=== PATIENT | female | born 1935 | race Caucasian/White ===

== ENCOUNTER 2018-06-25 08:39 | Outpatient (CLI) | payer MEDICARE, MEDICAID, SELFPAY ==
[2018-06-25 11:51] LABS: Hemoglobin A1C 8.7 % (4.5-6.2)
== END 2018-06-25 08:59 ==
LOC: LOS 12:44 → LBO 16:36 → LOS 16:36
DX: E11.9 Type 2 diabetes mellitus without complications (principal)
CPT/HCPCS: 36415; 82043; 82565; 82570; 83036

== ENCOUNTER 2018-09-24 01:12 | Outpatient (CLI) | payer MEDICARE, MEDICAID, SELFPAY ==
[2018-09-24 12:31] LABS: Hemoglobin A1C 8.1 % (4.5-6.2)
[2018-09-24 12:32] LABS: ALT 14 U/L (12-78); AST 15 U/L (15-37); Albumin 3.1 g/dL (3.4-5.0); Alkaline Phosphatase 133 U/L (46-116); Anion Gap 10.4 mmol/L (3-11); BUN 36 mg/dL (7-18); Bilirubin, Total 0.4 mg/dL (0.2-1.0); CO2 24.6 mmol/L (21.0-32.0); CREATININE 2.44 mg/dL (0.55-1.02); Calcium 9.2 mg/dL (8.5-10.1); Chloride 106 mmol/L (98-107); Estimated GFR 19.01 (mL/min/1.73m2); Glucose 123 mg/dL (70-100); Potassium 4.8 mmol/L (3.5-5.1); Sodium 141 mmol/L (136-145); TSH (W/Ref FT4) 4.87 uIU/mL (0.358-3.74); Total Protein 6.3 g/dL (6.4-8.2)
[2018-09-24 12:53] LABS: FREE T4 1.14 ng/dL (0.76-1.46)
== END 2018-09-24 01:32 ==
DX: R53.1 Weakness (principal); E11.9 Type 2 diabetes mellitus without complications; I10 Essential (primary) hypertension; E03.9 Hypothyroidism, unspecified
CPT/HCPCS: 80053; 83036; 84439; 84443

== ENCOUNTER → 2018-11-12 09:52 | Outpatient (BNVA) | payer MEDICARE, MEDICAID, SELFPAY | PROVIDERS: Visit Provider Orthopaedic Surgery | DX: M17.11 Unilateral primary osteoarthritis, right knee (principal) | CPT/HCPCS: 20610; 99211; 99213; J7325 ==

== ENCOUNTER 2019-01-07 07:38 | Outpatient (CLI) | payer MEDICARE, MEDICAID, SELFPAY ==
[2019-01-07 11:55] LABS: ALT 12 U/L (12-78); AST 17 U/L (15-37); Albumin 3.3 g/dL (3.4-5.0); Alkaline Phosphatase 149 U/L (46-116); Anion Gap 8.9 mmol/L (3-11); BUN 49 mg/dL (7-18); Bilirubin, Total 0.4 mg/dL (0.2-1.0); CO2 27.1 mmol/L (21.0-32.0); CREATININE 2.54 mg/dL (0.55-1.02); Calcium 9.4 mg/dL (8.5-10.1); Chloride 106 mmol/L (98-107); Glucose 91 mg/dL (70-100); Potassium 4.8 mmol/L (3.5-5.1); Sodium 142 mmol/L (136-145); TSH (W/Ref FT4) 4.44 uIU/mL (0.358-3.74); Total Protein 6.6 g/dL (6.4-8.2)
[2019-01-07 12:18] LABS: Hemoglobin A1C 9.4 % (4.5-6.2)
[2019-01-07 12:40] LABS: FREE T4 1.17 ng/dL (0.76-1.46)
== END 2019-01-07 07:58 ==
LOC: LBO 08:15 → LOS 09:47
DX: E11.9 Type 2 diabetes mellitus without complications (principal); E03.9 Hypothyroidism, unspecified; I10 Essential (primary) hypertension; I73.9 Peripheral vascular disease, unspecified; N18.9 Chronic kidney disease, unspecified
CPT/HCPCS: 36415; 80053; 83036; 84439; 84443

== ENCOUNTER 2019-02-18 06:33 | Outpatient (CLI) | payer MEDICARE, MEDICAID, SELFPAY ==
[2019-02-18 11:17] LABS: BUN 47 mg/dL (7-18); CREATININE 2.55 mg/dL (0.55-1.02); Estimated GFR 18.02 (mL/min/1.73m2)
== END 2019-02-18 06:53 ==
DX: N18.9 Chronic kidney disease, unspecified (principal)
CPT/HCPCS: 36415; 84520; 82565

== ENCOUNTER 2019-03-31 06:40 | Outpatient (CLI) | payer MEDICARE, MEDICAID, SELFPAY ==
[2019-03-31 11:08] LABS: ALT 21 U/L (12-78); AST 15 U/L (15-37); Albumin 3.3 g/dL (3.4-5.0); Alkaline Phosphatase 143 U/L (46-116); Anion Gap 7.7 mmol/L (3-11); BUN 42 mg/dL (7-18); Bilirubin, Total 0.3 mg/dL (0.2-1.0); CO2 25.3 mmol/L (21.0-32.0); CREATININE 2.69 mg/dL (0.55-1.02); Calcium 9.5 mg/dL (8.5-10.1); Chloride 110 mmol/L (98-107); Estimated GFR 16.94 (mL/min/1.73m2); Glucose 88 mg/dL (70-100); Potassium 5.6 mmol/L (3.5-5.1); Sodium 143 mmol/L (136-145); TSH (W/Ref FT4) 3.56 uIU/mL (0.358-3.74); Total Protein 6.5 g/dL (6.4-8.2)
== END 2019-03-31 07:00 ==
DX: E03.9 Hypothyroidism, unspecified (principal); E11.9 Type 2 diabetes mellitus without complications; I10 Essential (primary) hypertension; N18.9 Chronic kidney disease, unspecified; N28.9 Disorder of kidney and ureter, unspecified; G47.00 Insomnia, unspecified
CPT/HCPCS: 36415; 80053; 83036; 84443

== ENCOUNTER 2019-04-21 08:25 | Outpatient (CLI) | payer MEDICARE, MEDICAID, SELFPAY ==
[2019-04-21 11:26] LABS: Anion Gap 10.6 mmol/L (3-11); BUN 42 mg/dL (7-18); CO2 24.4 mmol/L (21.0-32.0); Calcium 9.2 mg/dL (8.5-10.1); Chloride 109 mmol/L (98-107); Estimated GFR 14.94 (mL/min/1.73m2); Glucose 84 mg/dL (70-100); Potassium 4.9 mmol/L (3.5-5.1); Sodium 144 mmol/L (136-145)
== END 2019-04-21 08:45 ==
LOC: LBO 08:26 → LOS 08:32
DX: N28.9 Disorder of kidney and ureter, unspecified (principal)
CPT/HCPCS: 36415; 80048

== ENCOUNTER 2019-04-23 10:49 | Outpatient (CLI) | payer MEDICARE, MEDICAID, SELFPAY ==
--- NOTE | 2019-04-23 10:08 | DI.RAD_ITS ---
SYMPTOM/DIAGNOSIS: M25.551, RT HIP PAIN, S/P LT HIP REPLACEMENT RIGHT HIP AND PELVIS: Joint space narrowing, articular sclerosis and periarticular hypertrophic spurring are demonstrated. The findings are consistent with severe DJD.
== END 2019-04-23 11:09 ==
PROVIDERS: Visit Provider Family Medicine
DX: M25.551 Pain in right hip (principal); M16.11 Unilateral primary osteoarthritis, right hip; Z96.642 Presence of left artificial hip joint
CPT/HCPCS: 73502

== ENCOUNTER → 2019-05-13 09:47 | Outpatient (BNVA) | payer MEDICARE, MEDICAID, SELFPAY | PROVIDERS: Visit Provider Orthopaedic Surgery | DX: M17.11 Unilateral primary osteoarthritis, right knee (principal); M16.11 Unilateral primary osteoarthritis, right hip; E11.22 Type 2 diabetes mellitus with diabetic chronic kidney disease; I12.9 Hypertensive chronic kidney disease with stage 1 through stage 4 chronic kidney disease, or unspecified chronic kidney disease; N18.9 Chronic kidney disease, unspecified; Z96.652 Presence of left artificial knee joint | CPT/HCPCS: 20610; 99211; 99213; J7325 ==

== ENCOUNTER 2019-05-14 00:47 | Outpatient (CLI) | payer MEDICARE, MEDICAID, SELFPAY ==
--- NOTE | 2019-05-14 06:57 | DI.RAD_ITS ---
SYMPTOM/DIAGNOSIS: RIGHT HIP PAIN RIGHT HIP INJECTION: Fluoroscopy Time: 2.0 Fluoroscopy was utilized by Dr. Saenz during the performance of a right hip injection. Please refer to the procedure report for complete details.
--- NOTE | 2019-05-14 10:24 | ROE_ITS ---
PROCEDURE NOTE DATE OF PROCEDURE May 14, 2019 INDICATIONS FOR PROCEDURE Hallie is well known to me. She has osteoarthritis of the right hip. This was discovered on a recent x-ray ordered by Dr. Cruz. She was seen yesterday in the office for her knee arthritis on the r ight side, and this was treated with Synvisc-One. However, she has complained of increasing right hip pain. She was not interested in a hip replacement operation. In addition, she has significant renal failure issues, which have been somewhat corrected with her diet, which is low in potassium and prote in. I recommended injection of the right hip under fluoroscopy. This was Dr. Cruz's request as livia juarez. I discussed this in detail with the patient and her granddaughter and she understood and wished to proceed. DESCRIPTION OF PROCEDURE The patient was taken to the Fluoroscopy Suite. The anterolateral aspect of her right proximal femur was prepped with ChloraPrep. 1% lidocaine was then used to create an anesthetic wheal with a #25-guag e needle along the proposed injection site of the spinal needle. After waiting an adequate amount of time, a #22-guage spinal needle was inserted into the right hip j oint under fluoroscopic control. I then injected the hip joint with 6 cc of 0.5% Marcaine and 80 mg of Depo- Medrol. The patient noted immediate pain relief. She was able to sit with comfort and could walk with minimal to no pain. She tolerated the procedure well. She showed no adverse effects. A Band-Aid was placed on the puncture site. PLAN She will followup depending on how she responds to the medication. She is advised that she will notic e the pain to recur after the Marcaine wears off, but then should remit after the Depo-Medrol injecti on has had a chance to take effect.
== END 2019-05-14 01:07 ==
PROVIDERS: Visit Provider Orthopaedic Surgery
DX: M16.11 Unilateral primary osteoarthritis, right hip (principal); M25.551 Pain in right hip
CPT/HCPCS: 20610; 77002

== ENCOUNTER 2019-05-27 01:34 | Outpatient (CLI) | payer MEDICARE, MEDICAID, SELFPAY ==
[2019-05-27 11:31] LABS: Anion Gap 11.5 mmol/L (3-11); BUN 61 mg/dL (7-18); CO2 23.5 mmol/L (21.0-32.0); CREATININE 2.99 mg/dL (0.55-1.02); Calcium 9.3 mg/dL (8.5-10.1); Chloride 109 mmol/L (98-107); Glucose 114 mg/dL (70-100); Potassium 5.1 mmol/L (3.5-5.1); Sodium 144 mmol/L (136-145)
== END 2019-05-27 01:54 ==
DX: N18.9 Chronic kidney disease, unspecified (principal); E11.22 Type 2 diabetes mellitus with diabetic chronic kidney disease
CPT/HCPCS: 36415; 80048

== ENCOUNTER 2019-06-25 01:51 | Outpatient (CLI) | payer MEDICARE, MEDICAID, SELFPAY ==
[2019-06-25 12:48] LABS: Anion Gap 7.8 mmol/L (3-11); BUN 52 mg/dL (7-18); CO2 25.2 mmol/L (21.0-32.0); CREATININE 2.66 mg/dL (0.55-1.02); Chloride 109 mmol/L (98-107); Estimated GFR 17.16 (mL/min/1.73m2); Glucose 118 mg/dL (70-100); Potassium 4.6 mmol/L (3.5-5.1); Sodium 142 mmol/L (136-145)
[2019-06-25 12:58] LABS: Hemoglobin A1C 7.6 % (4.5-6.2)
== END 2019-06-25 02:11 ==
DX: E11.9 Type 2 diabetes mellitus without complications (principal); I10 Essential (primary) hypertension; N18.9 Chronic kidney disease, unspecified
CPT/HCPCS: 36415; 80048; 83036

== ENCOUNTER 2019-07-30 01:46 | Outpatient (CLI) | payer MEDICARE, MEDICAID, SELFPAY ==
[2019-07-30 12:35] LABS: Hemoglobin A1C 7.3 % (4.5-6.2)
[2019-07-30 12:40] LABS: ALT 12 U/L (14-59); AST 16 U/L (15-37); Albumin 3.4 g/dL (3.4-5.0); Alkaline Phosphatase 157 U/L (46-116); BUN 50 mg/dL (7-18); Bilirubin, Total 0.3 mg/dL (0.2-1.0); CREATININE 2.89 mg/dL (0.55-1.02); Calcium 9.2 mg/dL (8.5-10.1); Chloride 108 mmol/L (98-107); Glucose 148 mg/dL (70-100); Potassium 5.3 mmol/L (3.5-5.1); Sodium 142 mmol/L (136-145); TSH (W/Ref FT4) 3.54 uIU/mL (0.36-3.74); Vitamin B12 263 pg/mL (193-986)
== END 2019-07-30 02:06 ==
DX: E03.9 Hypothyroidism, unspecified (principal); E11.9 Type 2 diabetes mellitus without complications; I10 Essential (primary) hypertension; N28.9 Disorder of kidney and ureter, unspecified; R41.3 Other amnesia; G47.00 Insomnia, unspecified; D51.8 Other vitamin B12 deficiency anemias
CPT/HCPCS: 36415; 80053; 82607; 83036; 84443

== ENCOUNTER 2019-09-11 03:25 | Outpatient (CLI) | payer MEDICARE, MEDICAID, SELFPAY ==
[2019-09-11 10:47] LABS: Anion Gap 10.1 mmol/L (3-11); BUN 59 mg/dL (7-18); CO2 22.9 mmol/L (21.0-32.0); CREATININE 3.06 mg/dL (0.55-1.02); Calcium 9.3 mg/dL (8.5-10.1); Chloride 110 mmol/L (98-107); Glucose 146 mg/dL (74-106); Potassium 5.2 mmol/L (3.5-5.1); Sodium 143 mmol/L (136-145)
== END 2019-09-11 03:45 ==
DX: I10 Essential (primary) hypertension (principal); N28.9 Disorder of kidney and ureter, unspecified
CPT/HCPCS: 36415; 80048

== ENCOUNTER 2019-10-10 01:23 | Outpatient (CLI) | payer MEDICARE, MEDICAID, SELFPAY ==
[2019-10-10 11:36] LABS: Anion Gap 11.3 mmol/L (3-11); BUN 49 mg/dL (7-18); CO2 24.7 mmol/L (21.0-32.0); CREATININE 2.75 mg/dL (0.55-1.02); Calcium 9.5 mg/dL (8.5-10.1); Chloride 112 mmol/L (98-107); Estimated GFR 16.52 (mL/min/1.73m2); Glucose 119 mg/dL (74-106); Potassium 5.1 mmol/L (3.5-5.1); Sodium 148 mmol/L (136-145)
== END 2019-10-10 01:43 ==
DX: I10 Essential (primary) hypertension (principal); N18.9 Chronic kidney disease, unspecified; I73.9 Peripheral vascular disease, unspecified; R41.3 Other amnesia
CPT/HCPCS: 36415; 80048

== ENCOUNTER → 2019-11-10 12:45 | Outpatient (BNVA) | payer MEDICARE, MEDICAID, SELFPAY | PROVIDERS: Visit Provider Student in an Organized Health Care Education/Training Program | DX: M16.11 Unilateral primary osteoarthritis, right hip (principal); M17.11 Unilateral primary osteoarthritis, right knee; E11.9 Type 2 diabetes mellitus without complications; I10 Essential (primary) hypertension; Z79.4 Long term (current) use of insulin | CPT/HCPCS: 20610; 99213; J7325 ==

== ENCOUNTER 2019-11-12 02:13 | Outpatient (CLI) | payer MEDICARE, MEDICAID, SELFPAY ==
[2019-11-12 11:36] LABS: Hemoglobin A1C 7.6 % (3.8-5.6)
[2019-11-12 11:52] LABS: Anion Gap 10.6 mmol/L (3-11); BUN 55 mg/dL (7-18); CO2 25.4 mmol/L (21.0-32.0); CREATININE 2.86 mg/dL (0.55-1.02); Calcium 9.8 mg/dL (8.5-10.1); Chloride 108 mmol/L (98-107); Estimated GFR 15.79 (mL/min/1.73m2); Glucose 158 mg/dL (74-106); Potassium 4.8 mmol/L (3.5-5.1); Sodium 144 mmol/L (136-145)
== END 2019-11-12 02:33 ==
DX: E11.9 Type 2 diabetes mellitus without complications (principal); I10 Essential (primary) hypertension; N18.9 Chronic kidney disease, unspecified
CPT/HCPCS: 36415; 80048; 83036

== ENCOUNTER 2019-12-16 02:31 | Outpatient (CLI) | payer MEDICARE, MEDICAID, SELFPAY ==
[2019-12-16 11:10] LABS: HCT 32.5 % (36.0-46.0); Mean Corp. HGB Concentration 30.8 g/dL (32.0-36.0); Mean Corpuscular Hemoglobin 27.1 pg (27.0-33.0); Mean Corpuscular Volume 88.1 fL (80-95); Mean Platelet Volume 11.6 fL (8.0-11.0); Platelet Count 231 x1000/uL (130-400); RBC 3.69 m/cumm (4.00-5.20); RBC Distribution Width 13.3 % (11.7-14.6); White Blood Cell Count 6.49 k/cumm (4.4-10.8)
[2019-12-16 12:16] LABS: Iron 43 ug/dL (50-170)
[2019-12-16 12:45] LABS: ALT 12 U/L (14-59); AST 12 U/L (15-37); Albumin 3.4 g/dL (3.4-5.0); Alkaline Phosphatase 154 U/L (46-116); Anion Gap 9.8 mmol/L (3-11); BUN 54 mg/dL (7-18); Bilirubin, Total 0.4 mg/dL (0.2-1.0); CO2 23.2 mmol/L (21.0-32.0); CREATININE 2.76 mg/dL (0.55-1.02); Calcium 9.2 mg/dL (8.5-10.1); Chloride 110 mmol/L (98-107); Estimated GFR 16.45 (mL/min/1.73m2); Glucose 120 mg/dL (74-106); Magnesium 1.9 mg/dL (1.8-2.4); Potassium 5.1 mmol/L (3.5-5.1); Sodium 143 mmol/L (136-145); Total Protein 6.6 g/dL (6.4-8.2)
[2019-12-16 13:24] LABS: PHOSPHORUS 3.8 mg/dL (2.6-4.7)
== END 2019-12-16 02:51 ==
DX: E03.9 Hypothyroidism, unspecified (principal); D50.9 Iron deficiency anemia, unspecified; E11.9 Type 2 diabetes mellitus without complications; I10 Essential (primary) hypertension; I73.9 Peripheral vascular disease, unspecified; N18.9 Chronic kidney disease, unspecified; N28.9 Disorder of kidney and ureter, unspecified; R41.3 Other amnesia
CPT/HCPCS: 36415; 80053; 85027; 83540; 83735; 84100

== ENCOUNTER 2020-02-20 01:57 | Outpatient (CLI) | payer MEDICARE, MEDICAID, SELFPAY ==
[2020-02-20 08:54] LABS: HGB 10.7 g/dL (12.0-15.5); Mean Corp. HGB Concentration 31.5 g/dL (32.0-36.0); Mean Corpuscular Hemoglobin 27.8 pg (27.0-33.0); Mean Corpuscular Volume 88.3 fL (80-95); Mean Platelet Volume 11.9 fL (8.0-11.0); Platelet Count 241 x1000/uL (130-400); RBC 3.85 m/cumm (4.00-5.20); RBC Distribution Width 12.7 % (11.7-14.6); White Blood Cell Count 6.66 k/cumm (4.4-10.8)
[2020-02-20 09:12] LABS: Hemoglobin A1C 7.4 % (3.8-5.6)
[2020-02-20 09:48] LABS: Iron 38 ug/dL (50-170); Total Iron Binding Capacity 211 ug/dL (250-450); Transferrin Sat 18 % (15-50)
[2020-02-20 09:51] LABS: Anion Gap 9.1 mmol/L (3-11); BUN 46 mg/dL (7-18); CO2 26.9 mmol/L (21.0-32.0); CREATININE 2.87 mg/dL (0.55-1.02); Calcium 9.5 mg/dL (8.5-10.1); Chloride 105 mmol/L (98-107); Estimated GFR 15.68 (mL/min/1.73m2); Glucose 116 mg/dL (74-106); Potassium 4.6 mmol/L (3.5-5.1); Sodium 141 mmol/L (136-145); TSH (W/Ref FT4) 3.72 uIU/mL (0.36-3.74)
== END 2020-02-20 02:17 ==
DX: D50.9 Iron deficiency anemia, unspecified (principal); E11.9 Type 2 diabetes mellitus without complications; E03.9 Hypothyroidism, unspecified; I10 Essential (primary) hypertension; N18.9 Chronic kidney disease, unspecified; R41.3 Other amnesia
CPT/HCPCS: 36415; 80048; 85027; 83036; 83540; 83550; 84443

== ENCOUNTER 2020-04-13 00:55 | Outpatient (CLI) | payer MEDICARE, MEDICAID, SELFPAY ==
[2020-04-13 14:50] LABS: Anion Gap 12.4 mmol/L (3-11); BUN 39 mg/dL (7-18); CO2 24.6 mmol/L (21.0-32.0); CREATININE 2.92 mg/dL (0.55-1.02); Calcium 9.3 mg/dL (8.5-10.1); Chloride 106 mmol/L (98-107); Estimated GFR 15.38 (mL/min/1.73m2); Glucose 106 mg/dL (74-106); Potassium 5.1 mmol/L (3.5-5.1); Sodium 143 mmol/L (136-145)
[2020-04-13 14:55] LABS: Iron 30 ug/dL (50-170)
== END 2020-04-13 01:15 ==
DX: I10 Essential (primary) hypertension (principal); N28.9 Disorder of kidney and ureter, unspecified; R41.3 Other amnesia; N18.9 Chronic kidney disease, unspecified
CPT/HCPCS: 36415; 80048; 83540

== ENCOUNTER 2020-05-26 03:50 | Outpatient (CLI) | payer MEDICARE, MEDICAID, SELFPAY ==
[2020-05-26 09:13] LABS: Abs Immature Grans 0.02 10^3/uL (0.0-0.06); Absolute Basophil Count 0.01 10^3/uL (0.0-0.2); Absolute Eosinophil Count 0.16 10^3/uL (0.0-0.7); Absolute Lymphocyte Count 1.57 10^3/uL (1.2-3.4); Absolute Monocyte Count 0.61 10^3/uL (0.1-0.8); Absolute Neutrophil Count 5.88 10^3/uL (1.2-6.7); Basophils % 0.1; Eosinophils % 1.9; HCT 34.6 % (36.0-46.0); HGB 10.8 g/dL (11.2-15.7); Immature Grans % 0.2; MCH 27.6 pg (27.0-33.0); MCHC 31.2 % (32.0-36.0); MCV 88.3 fL (80-95); MPV 11.1 fL (8.0-11.0); Monocytes % 7.4; Neutrophils % 71.4; Nucleated RBC 0 %; Platelet Count 217 10^3/uL (130-400); RBC 3.92 10^6/uL (3.93-5.22); RDW 12.9 % (11.7-14.6); RDW-SD 41.1 fL; WBC 8.25 10^3/uL (4.4-10.8)
[2020-05-26 09:17] LABS: Bilirubin Negative (Negative); Blood Trace-intact (Negative); Clarity Clear (Clear); Glucose Negative (Negative); Ketones Negative (Negative); Leukocyte Esterase Small (Negative); Nitrite Negative (Negative); Urobilinogen 0.2 EU/dL (Up TO 0.2); pH 6.5 (5-8)
[2020-05-26 09:23] LABS: Hemoglobin A1C 6.6 % (3.8-5.6)
[2020-05-26 09:27] LABS: Bacteria Many HPF (Negative); C & S Indicated? Yes; RBC 0-2 HPF (0-2); WBC >50 HPF (0-5)
[2020-05-26 10:00] LABS: Iron 41 ug/dL (50-170)
[2020-05-26 10:11] LABS: Anion Gap 10.2 mmol/L (3-11); BUN 46 mg/dL (7-18); CO2 25.8 mmol/L (21.0-32.0); CREATININE 2.58 mg/dL (0.55-1.02); Calcium 9.4 mg/dL (8.5-10.1); Chloride 105 mmol/L (98-107); Estimated GFR 17.74 (mL/min/1.73m2); Glucose 110 mg/dL (74-106); Potassium 4.5 mmol/L (3.5-5.1); Sodium 141 mmol/L (136-145); TSH (W/Ref FT4) 3.97 uIU/mL (0.36-3.74)
[2020-05-26 10:42] LABS: FREE T4 1.21 ng/dL (0.76-1.46)
== END 2020-05-26 04:10 ==
DX: E03.9 Hypothyroidism, unspecified (principal); E11.22 Type 2 diabetes mellitus with diabetic chronic kidney disease; I12.9 Hypertensive chronic kidney disease with stage 1 through stage 4 chronic kidney disease, or unspecified chronic kidney disease; N18.9 Chronic kidney disease, unspecified; R41.3 Other amnesia
CPT/HCPCS: 80048; 87077; 81003; 81015; 83036; 83540; 84439; 84443; 85025; 87086; 87186

== ENCOUNTER 2020-08-27 03:30 | Outpatient (CLI) | payer MEDICARE, MEDICAID, SELFPAY ==
[2020-08-27 09:55] LABS: HCT 33.9 % (36.0-46.0); HGB 10.5 g/dL (11.2-15.7); MCH 27.6 pg (27.0-33.0); MPV 11.4 fL (8.0-11.0); Platelet Count 258 10^3/uL (130-400); RBC 3.81 10^6/uL (3.93-5.22); RDW 12.8 % (11.7-14.6); RDW-SD 41.4 fL; WBC 7.41 10^3/uL (4.4-10.8)
[2020-08-27 09:58] LABS: Bilirubin Negative (Negative); Blood Trace-intact (Negative); Clarity Cloudy (Clear); Glucose Negative (Negative); Ketones Negative (Negative); Leukocyte Esterase Moderate (Negative); Nitrite Negative (Negative); Specific Gravity 1.025 (1.005-1.025); Urobilinogen 0.2 EU/dL (Up TO 0.2)
[2020-08-27 10:05] LABS: Hemoglobin A1C 6.4 % (<5.7)
[2020-08-27 10:11] LABS: Bacteria Packed HPF (Negative); C & S Indicated? Yes; WBC >50 HPF (0-5)
[2020-08-27 10:41] LABS: Anion Gap 10.5 mmol/L (3-11); BUN 38 mg/dL (7-18); CO2 26.5 mmol/L (21.0-32.0); CREATININE 2.66 mg/dL (0.55-1.02); Calcium 8.8 mg/dL (8.5-10.1); Chloride 107 mmol/L (98-107); Estimated GFR 17.12 (mL/min/1.73m2); Glucose 150 mg/dL (74-106); Potassium 4.8 mmol/L (3.5-5.1); Sodium 144 mmol/L (136-145)
[2020-08-27 10:44] LABS: Iron 51 ug/dL (50-170); Total Iron Binding Capacity 192 ug/dL (250-450)
== END 2020-08-27 03:50 ==
DX: D50.9 Iron deficiency anemia, unspecified (principal); I12.9 Hypertensive chronic kidney disease with stage 1 through stage 4 chronic kidney disease, or unspecified chronic kidney disease; N18.9 Chronic kidney disease, unspecified; E11.22 Type 2 diabetes mellitus with diabetic chronic kidney disease; R41.0 Disorientation, unspecified
CPT/HCPCS: 36415; 80048; 85027; 87077; 81003; 81015; 83036; 83540; 83550; 87086; 87186

== ENCOUNTER 2020-09-19 14:26 | Inpatient (IN) | payer MEDICARE, MEDICAID, SELFPAY ==
--- NOTE | 2020-09-19 14:37 | ED.GENADUL_ITS ---
Discharge Plan Discharge Details Chief Complaint: Nausea/Vomit/Diar Admit Date/Time: 09/19/20 16:32 Admit Provider: Freddy Flores Attending Provider: Freddy Flores Primary Care Provider: Smita Boyer ED Provider: Dina Branch Discharge Data Discharge Date/Time-TO BE ENTERED AT DEPARTURE: 09/19/20 17:05 Medical Decision Making <STEPHANIE Ramirez - Last Filed: 09/19/20 20:37> Patient is a pleasant 84-year-old female presents today with chief complaint of diarrhea. Diarrhea is present for the past week. She reports approximately 10 bowel movements today which have been quite liquidy. Per the patient and her daughter, she does not always know when she is having a bowel movement and she has had significant skin breakdown as a result. She denies any fevers or chills. Was recently treated with both Cefpodoxime and ceftriaxone for UTI. She denies any urinary tract symptoms at this time. No back pain. Denies any abdominal pain. Has had a diminished appetite. Past medical history significant for anemia, decubitus ulcer, PVD, hypothyr oidism, hyperlipidemia, hypertension, diabetes, CKD. On exam, patient appears nontoxic. Vital signs are reassuring. Abdominal exam is significant for hyperactive bowel sounds. She does have skin breakdown on her buttock, nursing staff applied Laura cream. Primary concern at this time for C. difficile based on the multiple antibiotics she has been on recently. Will obtain stool sample. We will also evaluate potential dehydration electrolyte abnormalities. Give IV hydration. Labs signficant for acute kidney injury. She has hx of CKD but this is elevated from previously. At the end of my shift, care transitioned to Dina Branch NP. Prior to my departure, I discussed disposition with daughter. She advised that her mother would like to be a DNR/DNI. HOwever, she feels that inpatient admission may be appropriate particularly as she is having difficulty caring for herself at home with her diarrhea. She reports that her mother will often sit in her stool and does not realize that she is incontinent of loose stool. At the end of my shift, stool testing pending. <Dina Branch - Last Filed: 09/19/20 21:49> Care assumed from provider (Diana BROWN) Discussed patient details and case and pending workup and disposition. Patient is hemodynamically stable, and alert and oriented. C. difficile culture came back positive. Due to patient's history of dementia, approximately 10 stools a day, and skin breakdown., Patient may do better as admission into the hospital. Will page hospitalist for possible admission. 1630: Spoke with Dr. Flores who agrees to admit patient for c-difficile diarrhea. Discussed plan with patient and patient's daughter. verbalized understanding. HPI <STEPHANIE Ramirez - Last Filed: 09/19/20 20:37> General Mode of arrival: ambulatory . Date/Time Provider Initiated Documentation: 09/19/20 14:27 . Limitations to Documentation: no limitations . Information obtained by: patient, family (daughter Sue, ) and RN notes reviewed . HPI Narrative: Patient is a pleasant 84-year-old female presenting today with chief complaint of diarrhea. Patient was recently treated for UTI first with ceftriaxone then cefpodoxime. Shortly after that, she began having watery diarrhea. Reports 10 bowel movements today. Is endorsing some buttock discomfort associated skin breakdown. She denies any fevers or chills. Denies any abdominal pain. No recent travel. No month exposures. Denies any chest pain or shortness of breath. No cough. Patient does have dementia although she is quite a good historian despite this. Daughter Sue is also able to augment history and provide good health information Related Data Home Medications Medication Instructions Recorded Confirmed acetaminophen [Acetaminophen Extra 500 mg PO TID PRN tab-cap 01/14/13 09/19/20 Strength] blood-glucose meter #1 ea 01/02/18 09/19/20 naproxen sodium 220 mg tablet 220 mg PO BID PRN 07/01/18 09/19/20 amlodipine 5 mg tablet 2.5 - 5 mg PO DAILY #90 tab 11/22/19 09/19/20 cyanocobalamin (vitamin B-12) 1,000 mcg SUBLINGUAL DAILY #90 tab 11/22/19 09/19/20 1,000 mcg sublingual tablet hydrochlorothiazide 25 mg tablet 25 mg PO DAILY #90 tab 11/22/19 09/19/20 insulin degludec 100 unit/mL (3 See Rx Instructions SC DAILY #45 ml 11/22/19 09/19/20 mL) subcutaneous pen levothyroxine 100 mcg tablet 100 mcg PO DAILY #90 tab 11/22/19 09/19/20 linagliptin 5 mg tablet 5 mg PO QAM #90 tab 11/22/19 09/19/20 pen needle, diabetic 31 gauge x #100 each 11/22/19 09/19/2001/04 blood sugar diagnostic #200 strip 12/16/19 09/19/20 lancets 28 gauge #200 each 12/16/19 09/19/20 donepezil 10 mg tablet 5 mg PO DAILY #90 tab 01/08/20 09/19/20 triamcinolone acetonide 0.5 % 1 applic TP BID #15 gm 01/08/20 09/19/20 topical cream nut.tx.imp.renal fxn,lac-reduc 237 ml PO DAILY #5688 ml 02/17/20 09/19/20 0.08 gram-1.8 kcal/mL oral liquid ferrous sulfate 325 mg (65 mg 650 mg PO Q OTHER DAY #90 tab 05/10/20 09/19/20 iron) tablet atenolol 25 mg tablet 12.5 mg PO DAILY #90 tab 06/25/20 09/19/20 quetiapine 25 mg tablet 25 mg PO BID PRN #60 tab 08/06/20 09/19/20 cefpodoxime 200 mg tablet 200 mg PO DAILY #14 tab 09/01/20 09/19/20 losartan 25 mg tablet 25 mg PO DAILY #90 tab 09/14/20 09/19/20 Previous Rx's Medication Instructions Recorded blood-glucose meter #1 ea 01/02/18 amlodipine 5 mg tablet 2.5 - 5 mg PO DAILY #90 tab 11/22/19 cyanocobalamin (vitamin B-12) 1,000 mcg SUBLINGUAL DAILY #90 tab 11/22/19 1,000 mcg sublingual tablet hydrochlorothiazide 25 mg tablet 25 mg PO DAILY #90 tab 11/22/19 insulin degludec 100 unit/mL (3 See Rx Instructions SC DAILY #45 ml 11/22/19 mL) subcutaneous pen levothyroxine 100 mcg tablet 100 mcg PO DAILY #90 tab 11/22/19 linagliptin 5 mg tablet 5 mg PO QAM #90 tab 11/22/19 pen needle, diabetic 31 gauge x #100 each 11/22/1901/04 blood sugar diagnostic #200 strip 12/16/19 lancets 28 gauge #200 each 12/16/19 donepezil 10 mg tablet 5 mg PO DAILY #90 tab 01/08/20 triamcinolone acetonide 0.5 % 1 applic TP BID #15 gm 01/08/20 topical cream nut.tx.imp.renal fxn,lac-reduc 237 ml PO DAILY #5688 ml 02/17/20 0.08 gram-1.8 kcal/mL oral liquid ferrous sulfate 325 mg (65 mg 650 mg PO Q OTHER DAY #90 tab 05/10/20 iron) tablet atenolol 25 mg tablet 12.5 mg PO DAILY #90 tab 06/25/20 quetiapine 25 mg tablet 25 mg PO BID PRN #60 tab 08/06/20 cefpodoxime 200 mg tablet 200 mg PO DAILY #14 tab 09/01/20 losartan 25 mg tablet 25 mg PO DAILY #90 tab 09/14/20 Allergies Allergy/AdvReac Type Severity Reaction Status Date / Time Sulfa (Sulfonamide AdvReac Mild nausea, Verified 09/19/20 14:55 Antibiotics) hives Review of Systems <STEPHANIE Ramirez - Last Filed: 09/19/20 20:37> Constitutional Constitutional: Reports as per HPI, Denies chills, Denies fatigue, Denies fever(s) and Denies headache(s) ENT Ears, Nose, Mouth, and Throat: Denies headache(s) Cardiovascular Cardiovascular: Reports as per HPI, Denies chest pain and Denies dyspnea Respiratory Respiratory: Reports as per HPI, Denies cough and Denies dyspnea Gastrointestinal Gastrointestinal: Reports as per HPI Musculoskeletal Musculoskeletal: Reports as per HPI and Denies back pain Integumentary/Breasts Skin/Breast: Reports as per HPI and Denies rash Neurologic Neurologic: Reports as per HPI and Denies headache(s) Endocrine Endocrine: Denies fatigue PFSH <STEPHANIE Ramirez - Last Filed: 09/19/20 20:37> Medical History CKD (chronic kidney disease) stage 5, GFR less than 15 ml/min Confusion Degenerative arthritis of right knee (03/25/15) Most recent Synvisc injection: 11/10/19 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 DNI (do not intubate) Essential hypertension (09/03/13) Generalized osteoarthritis right hip moderate right knee severe THR left hands Glaucoma Hyperlipidemia Hypothyroidism (09/04/13) Iron deficiency anemia Memory loss (06/15/14) MRI cerebral atrophy and small vessel vascular disease 08/13/15; [facility] – [place]; MEMORY LOSS IS LIKELY DEMENTIA Peripheral vascular disease (09/20/08) decreased pedal pulses; asymptomatic PAD Seborrheic dermatitis of scalp (10/17/16) Quarter size dry scaly area on right forehead at hairline. Encouraged Triamcinolone Cream 1-2 times per day. Hydrate in between with Cetaphil cream or something similar. Weakness generalized (04/02/18) Weight loss observed on examination 03/31/20 - Down 10lbs past 3 months Surgical History Total replacement of hip (~1993) LEFT Trigger Finger release (11/09/15) 05/15/14; [facility]; LEFT MIDDLE FINGER; LEFT PIP JOINT 11/09/15; Dr. Garcia; left ring finger trigger elease & left carpal tunnel release Family History Mother Neoplasm LIVER Father No problems noted. Sister No problems noted. Brother Diabetes Grandfather No problems noted. Grandfather No problems noted. Grandmother No problems noted. Grandmother No problems noted. Son Diabetes Daughter Diabetes Daughter No problems noted. Daughter Diabetes Social History Smoking/Tobacco Use Status: Never Smoking risk assessment performed?: Yes Alcohol Intake: never Drug use: Never Substance use type: does not use Current gender identity: female What type of physical activity do you participate in: none Special marleny needs: No Do you feel safe at home: Yes Do you feel safe in your relationship?: Yes Exam <STEPHANIE Ramirez - Last Filed: 09/19/20 20:37> Const General: cooperative, healthy appearing, comfortable, no acute distress and well developed Nutritional Appearance: average body habitus and well nourished Orientation: alert and awake HENMT Head: normal to inspection Mouth: moist mucous membranes Resp Effort & Inspection: normal respiratory effort, able to speak in complete sentences and no respiratory distress Auscultation: clear to auscultation bilaterally, no rales, no rhonchi and no wheezes Cardio Rate: regular rate Rhythm: regular rhythm Heart Sounds: S1 normal and S2 normal GI Inspection: normal to inspection, no edema, non-distended, no visible herniation and no visible pulsation Palpation: soft, no hepatosplenomegaly, not firm, no guarding, no hernias, no pulsatile masses, not rigid and nontender Percussion: normal to percussion Auscultation: hyperactive bowel sounds Back/Spine/Pelvis Back: no CVA tenderness Skin General skin exam: no rashes or lesions noted Trauma: no lacerations or abrasions Neuro General: patient alert, patient awake and patient oriented x3 Cognition: normal cognition Speech: speech normal Gait: normal gait Psych Appearance: grossly normal and well kempt Mental Status: mental status grossly normal Speech and Movement: speech and movement normal Sign Out <STEPHANIE Ramirez - Last Filed: 09/19/20 20:37> Sign Out Data: Sign Out Comment: Care transitioned to Dina Branch NP with c.diff testing pending. Last updated by Diana Agarwal PA at 09/19/20 15:46
[2020-09-19 14:45] VITALS: BP 124/59; PULSE 74; RESP 20; TEMP 36.5; O2SAT 100
[2020-09-19] MEDS: Normal Saline 1,000 ML 1000 ML IV (15:15)
[2020-09-19 15:22] LABS: Abs Immature Grans 0.02 10^3/uL (0.0-0.06); Absolute Basophil Count 0.02 10^3/uL (0.0-0.2); Absolute Eosinophil Count 0.07 10^3/uL (0.0-0.7); Absolute Lymphocyte Count 1.12 10^3/uL (1.2-3.4); Absolute Monocyte Count 0.78 10^3/uL (0.1-0.8); Absolute Neutrophil Count 5.51 10^3/uL (1.2-6.7); Basophils % 0.3; Eosinophils % 0.9; HCT 30.8 % (36.0-46.0); HGB 9.8 g/dL (11.2-15.7); Immature Grans % 0.3; Lymphocytes % 14.9; MCH 27.7 pg (27.0-33.0); MCHC 31.8 % (32.0-36.0); MPV 11.2 fL (8.0-11.0); Monocytes % 10.4; Neutrophils % 73.2; Nucleated RBC 0 %; Platelet Count 260 10^3/uL (130-400); RBC 3.54 10^6/uL (3.93-5.22); RDW 12.7 % (11.7-14.6); RDW-SD 40.6 fL; WBC 7.52 10^3/uL (4.4-10.8)
[2020-09-19 15:37] LABS: ALT 9 U/L (14-59); AST 12 U/L (15-37); Albumin 2.9 g/dL (3.4-5.0); Alkaline Phosphatase 97 U/L (46-116); Anion Gap 10.5 mmol/L (3-11); BUN 48 mg/dL (7-18); Bilirubin, Total 0.4 mg/dL (0.2-1.0); CO2 21.5 mmol/L (21.0-32.0); CREATININE 3.41 mg/dL (0.55-1.02); Calcium 8.8 mg/dL (8.5-10.1); Chloride 107 mmol/L (98-107); Estimated GFR 12.85 (mL/min/1.73m2); Glucose 171 mg/dL (74-106); Magnesium 1.8 mg/dL (1.8-2.4); Potassium 3.9 mmol/L (3.5-5.1); Sodium 139 mmol/L (136-145); Total Protein 6.8 g/dL (6.4-8.2)
[2020-09-19 15:39] LABS: Troponin I < 0.05 ng/mL (<0.06)
[2020-09-19 15:52] LABS: C Diff PCR Positive (Negative)
[2020-09-19 17:03] VITALS: BP 132/76; PULSE 72; RESP 18; TEMP 36.4; O2SAT 99
[2020-09-19 17:20] VITALS: BP 147/73; PULSE 88; RESP 16; TEMP 37; O2SAT 97
--- NOTE | 2020-09-19 17:57 | HPE_ITS ---
Date of service: 09/19/20 Time of Service: 17:58 Assessment and Plan Assessment and plan (1) Clostridium difficile colitis: Start date: 09/19/20 Status: Acute Assessment and plan: This is an 84-year-old lady recently treated for UTI with cephalosporin orally and presenting with several days of loose, watery stools and skin breakdown along with dehydration with already advanced CKD. She will be admitted for IV hydration and IV Flagyl considering oral vancomycin if her stools are not slowing down. She will be on a clear fluid diet. (2) Diabetes mellitus: Status: Chronic Assessment and plan: Mealtime glucometers with coverage using short acting insulin while in the hospital. Hold her usual treatment. Qualifiers: Chronic kidney disease stage: stage 5, not on chronic dialysis Diabetes mellitus complication detail: with chronic kidney disease Diabetes mellitus complication status: with kidney complications Diabetes mellitus intermediate card tender insulin use: with jail use Diabetes mellitus type: type 2 Qualified Code(s): E11.22 - Type 2 diabetes mellitus with diabetic chronic kidney disease; N18.5 - Chronic kidney disease, stage 5; Z79.4 - exterminator helper termite (current) use of insulin (3) CKD (chronic kidney disease) stage 5, GFR less than 15 ml/min: Status: Chronic Assessment and plan: Slightly exacerbated with dehydration from fluid loss, the patient to be IV hydrated with encouragement of oral fluids with clear fluid diet. (4) Memory loss: Status: Chronic Assessment and plan: Slightly exacerbated with acute illness with patient to continue on her Aricept. This should clear with hydration once patient is le ss stressed. History of Present Illness History of Present Illness Chief Complaint: Diarrhea Narrative: This is an 84-year-old female patient recently treated for UTI presenting with loose stools for the past week with frequent stools as much as 10 times a day and incontin ence with skin breakdown. The stools are liquid. She denies any abdominal pain and has had no nausea or vomiting. She has no urinary symptoms presently. She is slightly confused during conversation. She has no back pain no difficulties with breathing. She denies any edema. She does have a history of PVD with diabetes on insulin, CKD with anemia, hypertension, hyperlipidemia and decubitus ulcers in the past. She also has hypothyroidism. She denies any fatigue. She was evaluated in the ED and admitted with worsening of her renal function but also frequent stools with skin breakdown required fluid resuscitation and treatment for her C. difficile colitis which was positive by test in the ED. Review of Systems Narrative: 13 point review of systems otherwise unrevealing or unobtainable with the patient confused about recent events. 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 DNI (do not intubate) Essential hypertension (09/03/13) Generalized osteoarthritis right hip moderate right knee severe THR left hands Glaucoma Hyperlipidemia Hypothyroidism (09/04/13) Iron deficiency anemia Memory loss (06/15/14) MRI cerebral atrophy and small vessel vascular disease 08/13/15; [facility] [place]; MEMORY LOSS IS LIKELY DEMENTIA Peripheral vascular disease (09/20/08) decreased pedal pulses; asymptomatic PAD Seborrheic dermatitis of scalp (10/17/16) Quarter size dry scaly area on right forehead at hairline. Encouraged Triamcinolone Cream 1-2 times per day. Hydrate in between with Cetaphil cream or something similar. Weakness generalized (04/02/18) Weight loss observed on examination 03/31/20 - Down 10lbs past 3 months Surgical History Total replacement of hip (~1993) LEFT Trigger Finger release (11/09/15) 05/15/14; [facility]; LEFT MIDDLE FINGER; LEFT PIP JOINT 11/09/15; Dr. Garcia; left ring finger trigger elease & left carpal tunnel release Family History Mother Neoplasm LIVER Father No problems noted. Sister No problems noted. Brother Diabetes Grandfather No problems noted. Grandfather No problems noted. Grandmother No problems noted. Grandmother No problems noted. Son Diabetes Daughter Diabetes Daughter No problems noted. Daughter Diabetes Social History Smoking/Tobacco Use Status: Never Smoking risk assessment performed?: Yes Alcohol Intake: never Drug use: Never Substance use type: does not use Current gender identity: female What type of physical activity do you participate in: none Special marleny needs: No Do you feel safe at home: Yes Do you feel safe in your relationship?: Yes Meds Home Medications and Allergies Home Medications Medication Instructions Recorded Confirmed Type acetaminophen [Acetaminophen Extra 500 mg PO TID PRN tab-cap 01/14/13 09/19/20 History Strength] blood-glucose meter #1 ea 01/02/18 09/19/20 Rx naproxen sodium 220 mg tablet 220 mg PO BID PRN 07/01/18 09/19/20 History amlodipine 5 mg tablet 2.5 - 5 mg PO DAILY #90 tab 11/22/19 09/19/20 Rx cyanocobalamin (vitamin B-12) 1,000 mcg SUBLINGUAL DAILY #90 tab 11/22/19 09/19/20 Rx 1,000 mcg sublingual tablet hydrochlorothiazide 25 mg tablet 25 mg PO DAILY #90 tab 11/22/19 09/19/20 Rx insulin degludec 100 unit/mL (3 See Rx Instructions SC DAILY #45 ml 11/22/19 09/19/20 Rx mL) subcutaneous pen levothyroxine 100 mcg tablet 100 mcg PO DAILY #90 tab 11/22/19 09/19/20 Rx linagliptin 5 mg tablet 5 mg PO QAM #90 tab 11/22/19 09/19/20 Rx pen needle, diabetic 31 gauge x #100 each 11/22/19 09/19/20 Rx 3/16 blood sugar diagnostic #200 strip 12/16/19 09/19/20 Rx lancets 28 gauge #200 each 12/16/19 09/19/20 Rx donepezil 10 mg tablet 5 mg PO DAILY #90 tab 01/08/20 09/19/20 Rx triamcinolone acetonide 0.5 % 1 applic TP BID #15 gm 01/08/20 09/19/20 Rx topical cream nut.tx.imp.renal fxn,lac-reduc 237 ml PO DAILY #5688 ml 02/17/20 09/19/20 Rx 0.08 gram-1.8 kcal/mL oral liquid ferrous sulfate 325 mg (65 mg 650 mg PO Q OTHER DAY #90 tab 05/10/20 09/19/20 Rx iron) tablet atenolol 25 mg tablet 12.5 mg PO DAILY #90 tab 06/25/20 09/19/20 Rx quetiapine 25 mg tablet 25 mg PO BID PRN #60 tab 08/06/20 09/19/20 Rx cefpodoxime 200 mg tablet 200 mg PO DAILY #14 tab 09/01/20 09/19/20 Rx losartan 25 mg tablet 25 mg PO DAILY #90 tab 09/14/20 09/19/20 Rx Allergies Allergy/AdvReac Type Severity Reaction Status Date / Time Sulfa (Sulfonamide AdvReac Mild nausea, Verified 09/19/20 14:55 Antibiotics) hives Exam Narrative Exam Narrative: General: Patient appears appropriate for age, slightly confused and oriented to person and possibly place but not time or purpose. She is in no acute distress. She is asking to go home. HEENT: Normocephalic, eyes with pupils equal and reactive light symmetrically, extraocular movement intact and sclera anicteric. Oropharynx with moist mucosa. External ears and nose normal. Neck: Supple without JVD. Back: Without CVA tenderness. Breast: Exam deferred. Heart: Regular rate and rhythm with intermittent systolic murmur lower left sternal border. No gallops or rubs. Abdomen: Soft, nontender to palpation with bowel sounds hyperactive in all quadrants, no palpable hepatosplenomegaly and pulsatile left abdomen with patient takes deep inspiration without focal mass. Genitalia/rectal: Exam deferred. Extremities: Without clubbing, cyanosis or edema. Peripheral pulses are decreased but capillary refill is fair. Extremities do have arthritic changes with some periarticular muscle atrophy. Skin: Pale, warm and dry there is some superficial skin breakdown over the genitalia and perineal area according to the nurses. Neuro: Cranial nerves II through XII gross intact, no focalizing motor deficits. Psych: Normal affect almost euphoric, no depressed mood or abnormal thought processes, recent memory deficits with remote memory also difficult to assess with patient confusion. Results Imaging Additional studies: TSH low at 0.28 but free T4 normal at 1.75 Labs Result diagrams: 09/19/20 15:15 09/19/20 15:15 Labs: Laboratory Results - last 24 hr 09/19/20 09/19/20 09/19/20 14:45 15:15 15:15 WBC 7.52 RBC 3.54 L Hgb 9.8 L Hct 30.8 L MCV 87.0 MCH 27.7 MCHC 31.8 L RDW 12.7 Plt Count 260 MPV 11.2 H Immature Gran % 0.3 Neutrophils % 73.2 Lymphocytes % 14.9 Monocytes % 10.4 Eosinophils % 0.9 Basophils % 0.3 Nucleated RBC % 0 Absolute Neutrophils 5.51 Absolute Lymphocytes 1.12 L Absolute Monocytes 0.78 Absolute Eosinophils 0.07 Absolute Basophils 0.02 Sodium 139 Potassium 3.9 Chloride 107 Carbon Dioxide 21.5 Anion Gap 10.5 BUN 48 H Creatinine 3.41 H Estimated GFR/1.73 m2 12.85 Glucose 171 H Calcium 8.8 Magnesium 1.8 Total Bilirubin 0.4 AST 12 L ALT 9 L Alkaline Phosphatase 97 Troponin I < 0.05 Total Protein 6.8 Albumin 2.9 L Stl C.difficile Tox PCR Positive A Last Vital Signs Temp 37.0 C 09/19/20 17:20 Pulse 88 09/19/20 17:20 Resp 16 09/19/20 17:20 BP 147/73 H 09/19/20 17:20 Pulse Ox 97 09/19/20 17:20 COVID-19 Screening Have you, or household traveled for leisure in last 14 days?: No Had IN PERSON contact w/suspected or confirmed C-19 person: No
[2020-09-19 18:31] LABS: TSH (W/Ref FT4) 0.28 uIU/mL (0.36-3.74)
[2020-09-19] MEDS: Heparin 5,000 UNITS/ML VIAL 5000 UNITS SC (18:38)
[2020-09-19] MEDS: metroNIDAZOLE 500 MG/100 ML BAG 100 MG IVPB ×2 (18:39→23:35)
[2020-09-19] MEDS: Ferrous Sulfate 325 MG TAB 650 MG PO (18:39)
[2020-09-19] MEDS: Normal Saline Flush 10 ML SYR IVP ×2 (18:40→23:35)
[2020-09-19 19:05] LABS: FREE T4 1.75 ng/dL (0.76-1.46)
[2020-09-19 19:25] VITALS: BP 144/80; PULSE 70; RESP 17; TEMP 37.2; O2SAT 97
[2020-09-19 19:30] VITALS: O2SAT 97
[2020-09-20] VITALS: BP 105/50; PULSE 71; RESP 19; TEMP 36; O2SAT 98
[2020-09-20] MEDS: Heparin 5,000 UNITS/ML VIAL 5000 UNITS SC ×3 (01:09→18:13)
[2020-09-20 03:36] VITALS: BP 136/64; PULSE 69; RESP 18; TEMP 36.1; O2SAT 100
[2020-09-20] MEDS: metroNIDAZOLE 500 MG/100 ML BAG 100 MG IVPB ×2 (05:09→12:30)
[2020-09-20] MEDS: Normal Saline Flush 10 ML SYR IVP ×2 (05:09→22:47)
[2020-09-20 07:20] LABS: ALT 7 U/L (14-59); AST 12 U/L (15-37); Albumin 2.4 g/dL (3.4-5.0); Alkaline Phosphatase 81 U/L (46-116); Anion Gap 10.2 mmol/L (3-11); BUN 42 mg/dL (7-18); Bilirubin, Total 0.4 mg/dL (0.2-1.0); CO2 19.8 mmol/L (21.0-32.0); CREATININE 3.03 mg/dL (0.55-1.02); Calcium 8.8 mg/dL (8.5-10.1); Chloride 112 mmol/L (98-107); Estimated GFR 14.73 (mL/min/1.73m2); Glucose 91 mg/dL (74-106); Potassium 3.8 mmol/L (3.5-5.1); Sodium 142 mmol/L (136-145); Total Protein 5.9 g/dL (6.4-8.2)
[2020-09-20 07:21] LABS: Abs Immature Grans 0.01 10^3/uL (0.0-0.06); Absolute Basophil Count 0.02 10^3/uL (0.0-0.2); Absolute Eosinophil Count 0.11 10^3/uL (0.0-0.7); Absolute Lymphocyte Count 1.15 10^3/uL (1.2-3.4); Basophils % 0.5; Eosinophils % 2.6; HCT 28.8 % (36.0-46.0); HGB 9.3 g/dL (11.2-15.7); Immature Grans % 0.2; Lymphocytes % 27.4; MCHC 32.3 % (32.0-36.0); MCV 86.7 fL (80-95); MPV 11.3 fL (8.0-11.0); Monocytes % 14.3; Nucleated RBC 0 %; Platelet Count 236 10^3/uL (130-400); RBC 3.32 10^6/uL (3.93-5.22); RDW 12.7 % (11.7-14.6); RDW-SD 40.1 fL; WBC 4.19 10^3/uL (4.4-10.8)
[2020-09-20 07:55] VITALS: BP 134/61; PULSE 61; RESP 19; TEMP 35; O2SAT 99
[2020-09-20] MEDS: amLODIPine 5 MG TAB PO (08:27)
[2020-09-20] MEDS: Donepezil 5 MG TAB PO (08:28)
[2020-09-20] MEDS: Atenolol 25 MG TAB 12.5 MG PO (08:28)
[2020-09-20] MEDS: Losartan 25 MG TAB PO (08:29)
[2020-09-20 08:30] VITALS: O2SAT 100
--- NOTE | 2020-09-20 09:13 | INITIAL_ITS ---
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 Garcia; left ring finger trigger elease & left carpal tunnel release PREVIOUS FUNCTIONAL STATUS/SOCIAL/FAMILY SUPPORTS:: Hallie resides in [place], [place], she has [facility] highest needs and a very supportive family including her daughter and Power of Economics Consultant; Sue and her [id number]-[id number]-law and paid caregiver Patricia. She also has a grandson who resides in an apartment attached to her home and provides her care in the evening. Previously she attended [facility] day services, but is currently unable due to Covid restrictions. Her daughter and grand DIL are providing day time care and her grandson provides her care in the evening. Sue shares concerns about her safety transferring in and out of the tub. Caregivers utilize a shower chair and hand held shower but struggle to safely transfer her onto the shower chair due to the side of the tub. Sue reports Hallie struggles with knee and hip pain, has had previous replacements and has knee injections to manage her pain. Sue reports requesting increased services through [facility] Rosa Youssef including shower equipment and increased hours. Hallie has some memory impairments and baseline confusion per Sue, but does well in her own home setting; which is where the family is committed to keeping her as long as possible. CURRENT FUNCTIONAL STATUS:: Hallie continues to be closely monitored, she is pleasantly confused with no noted behavioral issues, or staff concerns regarding her presentation. CM continues to follow. ADVANCE DIRECTIVES:: COLST form on file; Sue, daughter as POA. Has patient been provided with info about the portal/API?: No Did the patient sign up for the portal?: No CODE STATUS:: DNR/DNI INSURANCE COVERAGE / FINANCIAL ISSUES:: MCR. SHELIA CURRENT HOME/COMMUNITY SERVICES/EQUIPMENT:: [facility], tub seat, hand held shower PRIMARY CARE PHYSICIAN:: Smita Boyer, MANAGER COMPETITIVE INTELLIGENCE: [facility] POTENTIAL DISCHARGE NEEDS:: Palliative consult, Evaluations for service needs upon discharge, follow up appointments. PATIENT/FAMILY EDUCATION NEEDS:: Review discharge instructions, discuss Ask Me Three. ANTICIPATED BARRIERS TO DISCHARGE:: None identified. TRANSPORTATION:: Via private vehicle with family. PLAN:: Hallie continues to be closely monitored and treated at this time. Her family is committed to keeping her at home as long as possible and provide her care. CM left voicemail for CM: Rosa Salas at [facility] to notify of family concerns and requests for increased services and bathroom updates. CM also notifed OFELIA of increased need via as well. CM notified Palliative Care MD, Dr. Cruz of consult and family contact, daughter Sue for follow up. Sue reported the family is currently sanitizing the home due to C-diff precautions. Anticipate Hallie will return home when ready per MD, via private vehicle with family. CM continues to follow.
[2020-09-20] MEDS: Cholestyramine/Aspartame PKT 1 EACH PO ×2 (10:45→18:12)
[2020-09-20 10:55] VITALS: BP 129/58; PULSE 67; RESP 18; TEMP 36.4; O2SAT 100
--- NOTE | 2020-09-20 14:57 | PHA.REVIEW ---
Pharmacy Admission Review - Admission Clinical Review (Last Reviewed 09/19/20 @ 18:03 by Leonid Carrasquillo) Clostridium difficile colitis (Acute) Sulfa (Sulfonamide Antibiotics) Adverse Reaction (Mild, Verified 09/19/20 14:55) nausea, hives Height 5 ft 4 in Weight 63.3 kg - Renal Dosing Renal Dosing: BUN 42 mg/dL (7-18) H 09/20/20 06:50 Creatinine 3.03 mg/dL (0.55-1.02) H 09/20/20 06:50 Medications needing adjustments: Reviewed (Crcl ~12.1 mL/min current meds okay) - Anticoagulation Anticoagulation: Hgb 9.3 g/dL (11.2-15.7) L 09/20/20 06:50 Hct 28.8 % (36.0-46.0) L 09/20/20 06:50 Plt Count 236 10^3/uL (130-400) 09/20/20 06:50 Creatinine 3.03 mg/dL (0.55-1.02) H 09/20/20 06:50 DVT Prohphylaxis: Reviewed Medications: Heparin - Opiate Usage Evaluate Pain Scale/Pains Meds: N/A - Relevant Labs Sodium 142 mmol/L (136-145) 09/20/20 06:50 Potassium 3.8 mmol/L (3.5-5.1) 09/20/20 06:50 Chloride 112 mmol/L (98-107) H 09/20/20 06:50 Magnesium 1.8 mg/dL (1.8-2.4) 09/19/20 15:15 Electrolytes, C-Reactive P, ESR: Reviewed - DM Control DM Control: Glucose 91 mg/dL (74-106) D 09/20/20 06:50 Finger Stick Blood Glucose 125 Finger Stick Blood Glucose 125 Finger Stick Blood Glucose 80 Finger Stick Blood Glucose 80 Insulin Dosing: Reviewed (sliding scale aspart ordered) - Heart Failure/AR Heart Failure/AR: Troponin I < 0.05 ng/mL (<0.06) 09/19/20 15:15 EF%, LESVIA's, B-Blockers, Diuretics: Reviewed - BP Control BP Control: Blood Pressure 129/58 Blood Pressure 134/61 Blood Pressure 136/64 If elevated: Reviewed - Qtc Review If Elevated: N/A - IV to PO Switch IV Medications: Reviewed - Home Meds Home Med List reviewed: Reviewed (Separate admin of levothyroxine and ferrous sulfate. Linagliptin may enhance they hypoglycemic effect of insulin.) Relevent Home Meds Not ordered & why?: Cefpodoxime (rx finished), cyanocobalamin, hydrochlorothiazide, insulin degludec (has sliding scale aspart for now), linagliptin, naproxen (PRN/renal impairment), triamcinolone - Current meds Current Medication Order Review: Intervened (adjusted timing of levothyroxine to 0600 per divorce mediator timing policy) - Comments Comments/Follow Ups: Watch BP, BG, H/H, SCr, and for med changes (renal dose adjustments, home meds ordered) Antibiotic Activity - Pharmacy Antibiotic Review Pharmacy Antibiotic Activity: IV to PO (metronidazole changed from IV to po (day 2 starts today))
[2020-09-20] MEDS: Normal Saline 1,000 ML 100 ML IV (15:00)
--- NOTE | 2020-09-20 15:04 | W.PM.PROGNOT ---
Date of Service Date of service: 09/20/20 Time of Service: 15:05 Assessment and Plan Assessment and plan (1) Clostridium difficile colitis: Start date: 09/20/20 Start time: 15:11 Status: Acute Assessment and plan: Per patient only one loose stool today. On questrian for loose stool, tolerating diet increased to soft. Switched to oral antibiotics. She will need a 10 day course of flagyl, day 2 of 10. Possible discharge tomorrow or sunday, pending PT/OT eval (2) Acute on chronic renal failure: Start date: 09/20/20 Start time: 15:18 Status: Acute Assessment and plan: Improving with IV hydration, hold nephrotoxic medications. Baseline creatinine per records appears to be 2.5-2.6. Will continue IV hydration Qualifiers: Acute renal failure type: unspecified Chronic kidney disease stage: stage 3 (moderate) Chronic kidney disease stage 3 subtype: unspecified whether 3a or 3b Qualified Code(s): N17.9 - Acute kidney failure, unspecified; N18.30 - Chronic kidney disease, stage 3 unspecified (3) Diabetes mellitus: Start date: 09/20/20 Start time: 15:15 Status: Chronic Assessment and plan: Monitor FS, SSI, BS was 91 Qualifiers: Diabetes mellitus type: type 2 Diabetes mellitus middle or intermediate school principal insulin use: with middle or intermediate school principal use Diabetes mellitus complication status: with kidney complications Diabetes mellitus complication detail: with chronic kidney disease Chronic kidney disease stage: stage 5, not on chronic dialysis Qualified Code(s): E11.22 - Type 2 diabetes mellitus with diabetic chronic kidney disease; N18.5 - Chronic kidney disease, stage 5; Z79.4 - senior care (current) use of insulin (4) Memory loss: Start date: 09/20/20 Start time: 15:26 Status: Chronic Assessment and plan: Slightly exacerbated with acute illness with patient to continue on her Aricept. This should clear with hydration once patient is less stressed. (5) Hypothyroidism: Start date: 09/20/20 Start time: 15:26 Status: Chronic Assessment and plan: TSH 0.28 with Free T4 1.75 decreased levothyroxine from 100 mcg to 75 mcg, repeat as outpatient and defer to PCP for further management Qualifiers: Hypothyroidism type: other Qualified Code(s): E03.8 - Other specified hypothyroidism (6) Essential hypertension: Start date: 09/20/20 Start time: 15:31 Status: Chronic Assessment and plan: Normotensive at this time, continue medication with the exception of cozar due to nephrotoxicity (7) Confusion: Start date: 09/20/20 Start time: 15:34 Status: Acute Assessment and plan: Intermittently, AAOx3 this afternoon (8) Discharge planning issues: Start date: 09/20/20 Start time: 15:35 Status: Acute Assessment and plan: Plan is to return home upon discharge with services. Family is very supportive. Continues to require hospitalization above case discussed with Dr. Flores who is in agreement. Subjective Subjective Patient reports: no new complaints Interval history since last seen: feeling better, one loose stool. Tolerating clears will increase to soft diet. PT/OT eval possible discharge in am or sunday. She denies CP, SOB, N/v/d Exam Narrative Exam Narrative: Const: AAOx 3 at time of evaluation. Pleasant cooperative. Sitting up in bed. Endorses one loose stool Eyes: PERRLA Resp: LSC, able to speak complete sentences. Cardio: Regular Rate regular rhythm GI: Bowel sounds hyperactive. No pain or tenderness with palpation Skin: a couple of dry psoriatic patches on her arms. Extrem: no clubbing, cyanosis or edema. PPPx2 Objective Last Vital Signs Temp 36.4 C L 09/20/20 10:55 Pulse 67 09/20/20 10:55 Resp 18 09/20/20 10:55 BP 129/58 L 09/20/20 10:55 Pulse Ox 100 09/20/20 10:55 Laboratory Results - last 24 hr 09/19/20 09/19/20 09/19/20 14:45 15:15 15:15 WBC 7.52 RBC 3.54 L Hgb 9.8 L Hct 30.8 L MCV 87.0 MCH 27.7 MCHC 31.8 L RDW 12.7 Plt Count 260 MPV 11.2 H Immature Gran % 0.3 Neutrophils % 73.2 Lymphocytes % 14.9 Monocytes % 10.4 Eosinophils % 0.9 Basophils % 0.3 Nucleated RBC % 0 Absolute Neutrophils 5.51 Absolute Lymphocytes 1.12 L Absolute Monocytes 0.78 Absolute Eosinophils 0.07 Absolute Basophils 0.02 Sodium 139 Potassium 3.9 Chloride 107 Carbon Dioxide 21.5 Anion Gap 10.5 BUN 48 H Creatinine 3.41 H Estimated GFR/1.73 m2 12.85 Glucose 171 H Calcium 8.8 Magnesium 1.8 Total Bilirubin 0.4 AST 12 L ALT 9 L Alkaline Phosphatase 97 Troponin I < 0.05 Total Protein 6.8 Albumin 2.9 L TSH Free T4 Stl C.difficile Tox PCR Positive A 09/19/20 09/20/20 09/20/20 15:15 06:50 06:50 WBC 4.19 L D RBC 3.32 L Hgb 9.3 L Hct 28.8 L MCV 86.7 MCH 28.0 MCHC 32.3 RDW 12.7 Plt Count 236 MPV 11.3 H Immature Gran % 0.2 Neutrophils % 55.0 Lymphocytes % 27.4 Monocytes % 14.3 Eosinophils % 2.6 Basophils % 0.5 Nucleated RBC % 0 Absolute Neutrophils 2.30 Absolute Lymphocytes 1.15 L Absolute Monocytes 0.60 Absolute Eosinophils 0.11 Absolute Basophils 0.02 Sodium 142 Potassium 3.8 Chloride 112 H Carbon Dioxide 19.8 L Anion Gap 10.2 BUN 42 H Creatinine 3.03 H Estimated GFR/1.73 m2 14.73 Glucose 91 D Calcium 8.8 Magnesium Total Bilirubin 0.4 AST 12 L ALT 7 L Alkaline Phosphatase 81 Troponin I Total Protein 5.9 L Albumin 2.4 L TSH 0.28 L Free T4 1.75 H Stl C.difficile Tox PCR
[2020-09-20] MEDS: metroNIDAZOLE 500 MG TAB PO (19:29)
--- NOTE | 2020-09-20 19:53 | PCNE_ITS ---
Date of service: 09/20/20 Time of Service: 18:53 History of Present Illness Narrative: Hallie is an 84-year-old woman with dementia chronic renal failure,Anemia hypothyroidism diabetes and arthritis. She has choices for care and lives in her home in [place]. Her daughter Sue at [phone] is her DPOA. Sue states that her mother loves being home with her animals. She has several hours of care per week. Recently Hallie developed diarrhea and tested positive for C. difficile while in the hospital. Sue would like Hallie to go home. She is set against Hallie going to a halfway for care. Jonna Kent at [facility] is her transplant case manager. The big question is how can Hallie get home safely and get the care she needs. Sue was hoping to be able to access more care for her Consults Consult date: 09/20/20 Requesting physician: Christiana Osborne Assessment and Plan Assessment and plan (1) Memory loss: Status: Chronic (2) Diabetes mellitus: Status: Chronic Qualifiers: Chronic kidney disease stage: stage 5, not on chronic dialysis Diabetes mellitus complication detail: with chronic kidney disease Diabetes mellitus complication status: with kidney complications Diabetes mellitus extermination supervisor insulin use: with extermination supervisor use Diabetes mellitus type: type 2 Qualified Code(s): E11.22 - Type 2 diabetes mellitus with diabetic chronic kidney disease; N18.5 - Chronic kidney disease, stage 5; Z79.4 - middle or intermediate school principal (current) use of insulin (3) CKD (chronic kidney disease) stage 5, GFR less than 15 ml/min: Status: Chronic (4) Clostridium difficile colitis: Status: Acute Assessment and plan: She is presently receiving Flagyl and cholestyramine (5) Palliative care patient: Status: Acute Assessment and plan: Hallie is an 84-year-old woman who is presently on choices for care. Unfortunately she will need more care when she goes home after this hospitalization. Hopefully Jonna Kent from [facility] who was her complex care nurse practitioner can help our care management team to increase services so that Hallie can go home. Staff states that she requires constant cueing in order to move from bed to commode commode to bathroom etc. She is happy while doing so but unfortunately requires constant reminders of the task at hand. I am uncertain if she would be able to be home alone at all at this point and would probably require 24-hour 7- day a week care. I think it is also important that she go home with home health, physical therapy, OT to help with the transition and give her the greatest chance to improve her functionality. The thing that is going to hinder this the most is her confusion and dementia. It is too early to see if her diarrhea is decreasing but I do believe that she will need to be hospitalized until there is a definite trend towards improvement of her diarrhea She is a DNR/DNI. Thank you very much for this consult. I am happy to see Hallie again inpatient and would like to follow-up with her outpatient for palliative care. Review of Systems Unobtainable due to mental condition Constitutional Comments: Hallie was a delightful lady who was effervescent, but unfortunately could not give me much recent past or tell me how she felt PFSH Medical History CKD (chronic kidney disease) stage 5, GFR less than 15 ml/min Confusion Degenerative arthritis of right knee (03/25/15) Most recent Synvisc injection: 11/10/19 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 Encouraged Tr iamcinolone Cream 1-2 times per day. Hydrate in between with Cetaphil cream or something similar. Weakness generalized (04/02/18) Weight loss observed on examination 03/31/20 - Down 10lbs past 3 months Surgical History Total replacement of hip (~1993) LEFT Trigger Finger release (11/09/15) 05/15/14; [facility]; LEFT MIDDLE FINGER; LEFT PIP JOINT 11/09/15; Dr. Garcia; left ring finger trigger elease & left carpal tunnel release Family History Mother Neoplasm LIVER Father No problems noted. Sister No problems noted. Brother Diabetes Grandfather No problems noted. Grandfather No problems noted. Grandmother No problems noted. Grandmother No problems noted. Son Diabetes Daughter Diabetes Daughter No problems noted. Daughter Diabetes Social History Smoking/Tobacco Use Status: Never Smoking risk assessment performed?: Yes Alcohol Intake: never Drug use: Never Substance use type: does not use Current gender identity: female What type of physical activity do you participate in: none Special marleny needs: No Do you feel safe at home: Yes Do you feel safe in your relationship?: Yes Exam Narrative Exam Narrative: Hallie is a stately lady. She was sitting in her chair. She engaged in conversation but did not have many details of the recent past such as what she ate for dinner etc. her hair is combed she is smiling widely. Her heart is regular. There is a systolic murmur. Lungs good aeration I did not detect any rales. Abdomen nontender despite her C. difficile. Lower extremities did have some mild edema Results Last Vital Signs Temp 97.5 F L 09/20/20 10:55 Pulse 67 09/20/20 10:55 Resp 18 09/20/20 10:55 BP 129/58 L 09/20/20 10:55 Pulse Ox 100 09/20/20 10:55 Labs Result diagrams: 09/20/20 06:50 09/20/20 06:50 Labs: Laboratory Results - last 24 hr 09/20/20 09/20/20 06:50 06:50 WBC 4.19 L D RBC 3.32 L Hgb 9.3 L Hct 28.8 L MCV 86.7 MCH 28.0 MCHC 32.3 RDW 12.7 Plt Count 236 MPV 11.3 H Immature Gran % 0.2 Neutrophils % 55.0 Lymphocytes % 27.4 Monocytes % 14.3 Eosinophils % 2.6 Basophils % 0.5 Nucleated RBC % 0 Absolute Neutrophils 2.30 Absolute Lymphocytes 1.15 L Absolute Monocytes 0.60 Absolute Eosinophils 0.11 Absolute Basophils 0.02 Sodium 142 Potassium 3.8 Chloride 112 H Carbon Dioxide 19.8 L Anion Gap 10.2 BUN 42 H Creatinine 3.03 H Estimated GFR/1.73 m2 14.73 Glucose 91 D Calcium 8.8 Total Bilirubin 0.4 AST 12 L ALT 7 L Alkaline Phosphatase 81 Total Protein 5.9 L Albumin 2.4 L
[2020-09-20 22:35] VITALS: BP 123/53; PULSE 86; RESP 17; TEMP 36; O2SAT 98
[2020-09-21] VITALS: BP 141/47; PULSE 84; RESP 16; TEMP 36.1; O2SAT 97
[2020-09-21] MEDS: Heparin 5,000 UNITS/ML VIAL 5000 UNITS SC ×2 (01:19→10:16)
[2020-09-21] MEDS: Normal Saline 1,000 ML 100 ML IV (04:32)
[2020-09-21] MEDS: Levothyroxine 75 MCG TAB PO (07:02)
[2020-09-21 07:32] LABS: Abs Immature Grans 0.01 10^3/uL (0.0-0.06); Absolute Basophil Count 0.01 10^3/uL (0.0-0.2); Absolute Eosinophil Count 0.13 10^3/uL (0.0-0.7); Absolute Lymphocyte Count 1.08 10^3/uL (1.2-3.4); Absolute Monocyte Count 0.48 10^3/uL (0.1-0.8); Basophils % 0.2; Eosinophils % 2.6; HCT 27.5 % (36.0-46.0); HGB 8.9 g/dL (11.2-15.7); Immature Grans % 0.2; MCH 27.5 pg (27.0-33.0); MCHC 32.4 % (32.0-36.0); MCV 84.9 fL (80-95); MPV 11.7 fL (8.0-11.0); Monocytes % 9.8; Neutrophils % 65.2; Nucleated RBC 0 %; RBC 3.24 10^6/uL (3.93-5.22); RDW 12.7 % (11.7-14.6); RDW-SD 39.1 fL; WBC 4.91 10^3/uL (4.4-10.8)
[2020-09-21 07:45] LABS: Anion Gap 10.2 mmol/L (3-11); BUN 35 mg/dL (7-18); CO2 18.8 mmol/L (21.0-32.0); CREATININE 2.73 mg/dL (0.55-1.02); Calcium 8.4 mg/dL (8.5-10.1); Chloride 111 mmol/L (98-107); Estimated GFR 16.62 (mL/min/1.73m2); Glucose 135 mg/dL (74-106); Magnesium 1.7 mg/dL (1.8-2.4); Potassium 3.6 mmol/L (3.5-5.1); Sodium 140 mmol/L (136-145)
[2020-09-21 07:55] VITALS: BP 118/52; PULSE 63; RESP 17; TEMP 36.6; O2SAT 98
[2020-09-21 08:15] LABS: Diff Comment Diff Reviewed; Hypochromasia 2+; Platelet Count 235 10^3/uL (130-400)
[2020-09-21 08:24] LABS: COVID-19 RT-PCR UVMMC Result Negative (Negative)
[2020-09-21] MEDS: metroNIDAZOLE 500 MG TAB PO (08:33)
[2020-09-21] MEDS: Acetaminophen 325 MG TAB 650 MG PO (08:34)
[2020-09-21] MEDS: Donepezil 5 MG TAB PO (08:35)
[2020-09-21] MEDS: amLODIPine 5 MG TAB PO (08:35)
[2020-09-21] MEDS: Atenolol 25 MG TAB 12.5 MG PO (08:35)
--- NOTE | 2020-09-21 08:42 | W.PM.DS.N ---
Date of service: 09/21/20 Time of Service: 08:43 DS: Diagnosis Discharge Diagnosis (1) Memory loss: Status: Chronic (2) Diabetes mellitus: Status: Chronic (3) CKD (chronic kidney disease) stage 5, GFR less than 15 ml/min: Status: Chronic (4) Clostridium difficile colitis: Status: Acute (5) Palliative care patient: Status: Acute Discharge Plan Disposition Patient Disposition: HOME Condition: Improving Discharge Details Reason For Visit: C-DIFFICILE DIARRHEA Admit Date/Time: 09/19/20 16:32 Admit Provider: Freddy Alcantara Attending Provider: Freddy Alcantara Primary Care Provider: Smita Boyer Hospital Course Hospital Course: This is an 84-year-old female patient recently treated for UTI with cefpodoxime who presented to the ED with one week history of loose stools. Her evaluation showed worsening of her renal function but also frequent stools with skin breakdown required fluid resuscitation and treatment for her C. difficile colitis which was positive by test in the ED. She was placed on oral flagyl and questran. Her loose stools stopped. she is slowly improving her appetite eating and drinking, she has been hemodynamically stable. She was referred to palliative care. Family declines correction or swing placement so plan is to return home. she will be give prescription for questran and metronidazole and outpatient f/u with pcp. discharge plan discussed with Dr Alcantara who is in agreement. Home Meds and New Rx's Prescriptions: New metronidazole 500 mg Tablet 500 mg PO TID Qty: 30 RF: 0 Prevalite 4 gram Powder In Packet 1 packet PO BID Qty: 42 RF: 0 Continued donepezil 10 mg tablet 5 mg PO DAILY Qty: 90 RF: 0 triamcinolone acetonide 0.5 % cream 1 applic TP BID Qty: 15 RF: 2 acetaminophen [Acetaminophen Extra Strength] 500 MG tablet 500 mg PO TID PRN RF: 0 (DME) blood-glucose meter 1 EACH misc 1 ea Miscellaneous DAILY Qty: 1 RF: 0 naproxen sodium 220 mg tablet 220 mg PO BID PRNRF: 0 amlodipine 5 mg tablet 2.5 - 5 mg PO DAILY Qty: 90 RF: 3 hydrochlorothiazide 25 mg tablet 25 mg PO DAILY Qty: 90 RF: 4 Tresiba FlexTouch U-100 100 unit/mL (3 mL) insulin pen See Rx Instructions SC DAILY Qty: 45 RF: 3 levothyroxine 100 mcg tablet 100 mcg PO DAILY Qty: 90 RF: 3 Tradjenta 5 mg tablet 5 mg PO QAM Qty: 90 RF: 3 (DME) pen needle, diabetic [BD Ultra-Fine Mini Pen Needle] 31 gauge x 3/16 needle See Dose Instructions .ROUTE .MEDSUPPLY Qty: 100 RF: 3 cyanocobalamin (vitamin B-12) 1,000 mcg tablet, sublingual 1,000 mcg Sublingual DAILY Qty: 90 RF: 3 (DME) lancets 28 gauge misc 1 ea Miscellaneous DAILY Qty: 200 RF: 4 (DME) Blood Glucose Test Strip 1 ea Miscellaneous DAILY Qty: 200 RF: 4 Nepro Carb Steady 0.08 gram-1.8 kcal/mL liquid 237 ml PO DAILY Qty: 5688 RF: 6 ferrous sulfate 325 mg (65 mg iron) tablet 650 mg PO Q OTHER DAY Qty: 90 RF: 3 atenolol 25 mg tablet 12.5 mg PO DAILY Qty: 90 RF: 4 quetiapine 25 mg tablet 25 mg PO BID PRN (Reason: anxiety/anger) Qty: 60 RF: 3 losartan 25 mg tablet 25 mg PO DAILY Qty: 90 RF: 2 Discontinued cefpodoxime 200 mg tablet 200 mg PO DAILY Qty: 14 RF: 0 Discharge Instructions Instructions: C. Diff (Clostridioides Difficile) Infection (DC) Additional Instructions: continue antibiotics as directed. drink 6 glasses of water daily to stay well hydrated. Referrals: Smita Boyer NP [Primary Care Provider] - Activity:: Activity as Tolerated Equipment/Supplies:: No Equipment Needed Diet:: Carb Counting DS: Summary Status at Discharge Functional status at discharge: uses cane/walker Overall status at discharge: patient is progressing back to baseline Mental Status: mental status grossly normal Speech and Movement: speech and movement normal Mood: congruent mood Affect: normal affect Exam Const General: cooperative, healthy appearing, comfortable and no acute distress Nutritional Appearance: average body habitus Orientation: alert, awake and oriented x3 HENMT Head: normal to inspection, normocephalic and atraumatic Mouth: oral mucosae normal Resp Effort & Inspection: normal respiratory effort Cardio Rate: regular rate Rhythm: regular rhythm GI Inspection: normal to inspection Palpation: soft and nontender Auscultation: normal bowel sounds Skin Lesions: lesion noted (periarea, present on admission) Neuro General: patient alert, patient awake and patient oriented x3 Extrem General: normal to inspection and full ROM Psych Mental Status: mental status grossly normal Speech and Movement: speech and movement normal Mood: congruent mood Affect: normal affect DS: Data Vitals/I&O Vitals and I&O: Vital Signs Temperature 36.6 C 09/21/20 07:55 Temperature Source Tympanic 09/21/20 07:55 Pulse 63 09/21/20 07:55 Pulse Rhythm Irregular 09/21/20 00:00 Respiratory Rate 17 09/21/20 07:55 Respiratory Effort 09/21/20 00:00 Respiratory Depth Normal 09/21/20 00:00 Respiratory Pattern Normal 09/21/20 00:00 Blood Pressure 118/52 L 09/21/20 07:55 Blood Pressure Position Supine 09/19/20 14:45 Pulse Oximetry 98 09/21/20 07:55 Oxygen Delivery Method Room Air 09/21/20 07:55 Oxygen Flow Rate 0 09/21/20 07:55 Pain Level 0 09/21/20 07:55 Intake & Output 09/20/20 09/20/20 09/21/20 11:59 23:59 11:59 Intake Total 680 / 2830.361 6959.333 / 1858.333 221.667 / 221.667 Output Total 75 / 75 Balance 680 / 6566.754 2564.333 / 1783.333 221.667 / 221.667 Weight 63.3 kg 63.4 kg Intake: IV 200 / 978.333 778.333 / 978.333 221.667 / 221.667 Oral 480 / 880 400 / 880 Output: Urine 75 / 75 Other: Urine Color Yellow Pale Yellow Yellow Urine Appearance Clear Clear Urine Odor Normal None Comment diaper changed urine mix with stool mixed with stool. Stool Size Large Large Small Stool Characteristics Liquid Liquid Soft Mucoid Mucoid Formed Brown Brown Black Black Voiding Methods Diaper Incontinent Diaper Data Completed and Pending Labs on day of discharge: Labs from last 24 hours 09/21/20 09/21/20 09/19/20 06:45 06:45 16:55 WBC 4.91 RBC 3.24 L Hgb 8.9 L Hct 27.5 L MCV 84.9 MCH 27.5 MCHC 32.4 RDW 12.7 Plt Count 235 MPV 11.7 H Immature Gran % 0.2 Neutrophils % 65.2 Lymphocytes % 22.0 Monocytes % 9.8 Eosinophils % 2.6 Basophils % 0.2 Nucleated RBC % 0 Absolute Neutrophils 3.20 Absolute Lymphocytes 1.08 L Absolute Monocytes 0.48 Absolute Eosinophils 0.13 Absolute Basophils 0.01 RBC Morphology See below Hypochromasia 2+ Sodium 140 Potassium 3.6 Chloride 111 H Carbon Dioxide 18.8 L Anion Gap 10.2 BUN 35 H Creatinine 2.73 H Estimated GFR/1.73 m2 16.62 Glucose 135 H Calcium 8.4 L Magnesium 1.7 L COVID-19 PCR Negative Nasopharyn COVID-19 PCR Not Applicable Ref Test [facility] Medical History CKD (chronic kidney disease) stage 5, GFR less than 15 ml/min Confusion Degenerative arthritis of right knee (03/25/15) Most recent Synvisc injection: 11/10/19 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 DNI (do not intubate) Essential hypertension (09/03/13) Generalized osteoarthritis right hip moderate right knee severe THR left hands Glaucoma Hyperlipidemia Hypothyroidism (09/04/13) Iron deficiency anemia Memory loss (06/15/14) [place] cerebral atrophy and small vessel [place] [facility] [place] LOSS IS LIKELY DEMENTIA Peripheral vascular disease (09/20/08) decreased pedal pulses; asymptomatic PAD Seborrheic dermatitis of scalp (10/17/16) Quarter size dry scaly area on right forehead at hairline. Encouraged Triamcinolone Cream 1-2 times per day. Hydrate in between with Cetaphil cream or something similar. Weakness generalized (04/02/18) Weight loss observed on examination 03/31/20 - Down 10lbs past 3 months Surgical History Total replacement of hip (~1993) LEFT Trigger Finger release (11/09/15) 05/15/14; [facility]; LEFT MIDDLE FINGER; LEFT PIP JOINT 11/09/15; Dr. Garcia; left ring finger trigger elease & left carpal tunnel release Family History Mother Neoplasm LIVER Father No problems noted. Sister No problems noted. Brother Diabetes Grandfather No problems noted. Grandfather No problems noted. Grandmother No problems noted. Grandmother No problems noted. Son Diabetes Daughter Diabetes Daughter No problems noted. Daughter Diabetes Social History Smoking/Tobacco Use Status: Never Smoking risk assessment performed?: Yes Alcohol Intake: never Drug use: Never Substance use type: does not use Current gender identity: female What type of physical activity do you participate in: none Special marleny needs: No Do you feel safe at home: Yes Do you feel safe in your relationship?: Yes
--- NOTE | 2020-09-21 09:26 | OT.INIE ---
Occupational Therapy Notes Inpatient Occupational Therapy Evaluation Date: 09/21/20 Referring Doctor:Christiana Osborne NP OT Orders: Non-URgent Precautions: Fall, Standard, DNR/DNI PATIENT PROFILE/ADMITTING DIAGNOSIS: Pt is an 84 year old female who was admitted to Med Surg floor with a dx of C-Difficile Diarrhea. 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 DNI (do not intubate) Essential hypertension (09/03/13) Generalized osteoarthritis right hip moderate right knee severe THR left hands Glaucoma Hyperlipidemia Hypothyroidism (09/04/13) Iron deficiency anemia Memory loss (06/15/14) [place] cerebral [place] vessel [place] [facility] [place]ORY LOSS IS LIKELY DEMENTIA Peripheral vascular disease (09/20/08) decreased pedal pulses; asymptomatic PAD Seborrheic dermatitis of scalp (10/17/16) Quarter size dry scaly area on right forehead at hairline. Encouraged Triamcinolone Cream 1-2 times per day. Hydrate in between with Cetaphil cream or something similar. Weakness generalized (04/02/18) Weight loss observed on examination 03/31/20 - Down 10lbs past 3 months Surgical History Total replacement of hip (~1993) LEFT Trigger Finger release (11/09/15) 05/15/14; [facility]; LEFT MIDDLE FINGER; LEFT PIP JOINT 11/09/15; Dr. Garcia; left ring finger trigger elease & left carpal tunnel release Social History/Home Situation: Pt reports that she lives in a private home and has caregivers who (A) with her ADLs. She states that she tries to be (I) but admits that the help is needed. She notes that she has (A) with bathing and dressing and reports that she does not utilize an (A) device for functional mobility. Equipment owned/DME: Grab bars SUBJECTIVE: Pt was lying in bed when OT arrived, she was agreeable to OT session. OBJECTIVE: General Observation: Pleasant with IV in (L) UE Mental Status: A&Ox2 Pain: no c/o pain ROM: RUE AROM WFL L UE AROM WFL STRENGTH: RUE 3+/5 throughout LUE 3+/5 throughout FUNCTIONAL MOBILITY/ADLS: Supine-sit (I) Sit-Stand SBA Stand-sit SBA Bed-Chair SBA BATHING sitting on side of the bed with max (A) set up/clean up Bathing UE (I) face and (B) UE- min (A) for hair with shower cap Bathing LE (I) (B) LE and yessy area DRESSING Dressing UE Min (A) don and doffing hospital gown Dressing LE max (A) don and doffing (B) socks GROOMING seated on side of the bed (I) with brushing hair with min vc TOILETING NT EATING NT BALANCE: Static sitting Normal Dynamic Sitting Good-Normal Static Standing Good Dynamic Standing Good SPECIAL TESTS: Daily Activity Limitations Standardized Measure [facility] AM -PAC ?6 clicks? Daily Activity Inpatient Short Form: Raw score: 14 Standardized score: 33.31 CMS score: 59.67% INFORMED CONSENT/EDUCATION: Pt instructed in purpose of OT Consult and plan of care. ASSESSMENT: Patient is a 84-year-old female referred to occupational therapy services with diagnosis of C-Difficile Diarrhea. Patient presents with clinical signs and symptoms consistent with dx. Pt was seen for OT consult today with assessment of her functional abilities in regards to her ADL performance. She is able to demonstrate with min vc throughout and increased (I). She was receptive to education and training and pleasant. Per pts EMR there is a discharge summary in her chart so she will be discharged from skilled OT services at this time. Patient is assessed as a Low 18294 complexity based on the following: History: see above Examination: see assessment of ADLs as noted above Presentation: evolving Decision Making: [facility] score 14 GOALS Pt was seen for OT consult only and is pending discharge at this time. PLAN OF CARE/TREATMENT PLAN: Pt is pending discharge at this time, OT will discharge pt from OT services. Plan is for pt to return home to caregivers when medically cleared per MD. DISCHARGE RECOMMENDATIONS Based on pts functional (I) and ability to perform her ADL/IADL routines with increased (I), OT recommends that pt return home when medically cleared per MD. TREATMENT TIME/MINUTES/CODES 75607, 15078, 25 minutes (07:35) Love Villegas, OTR/L [facility]
[2020-09-21] MEDS: Cholestyramine/Aspartame PKT 1 EACH PO (10:16)
--- NOTE | 2020-09-21 10:36 | IN_ITS ---
Date of service: 09/21/20 Time of Service: 10:36 PT Notes Visit Reasons: C-DIFFICILE DIARRHEA Physical Therapy Inpatient Initial Evaluation Date: 09/21/2020 Referring Doctor: Christiana Osborne NP PT Orders: PT CONSULT: Eval/treat Precautions: Fall. Standard. Activity as tolerated. Enteric contact precautions. Patient Profile/Admitting Diagnosis: Hallie is an 84-year-old female with diabetes mellitus, chronic kidney disease and memory loss who presented to the ED on 09/19/2020 with chief presentation of nausea, vomiting, and diarrhea. She is diagnosed with C. difficile colitis. 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 DNI (do not intubate) Essential hypertension (09/03/13) Generalized osteoarthritis right hip moderate right knee severe THR left hands Glaucoma Hyperlipidemia Hypothyroidism (09/04/13) Iron deficiency anemia Memory loss (06/15/14) MRI cerebral atrophy and small vessel vascular disease 08/13/15; [facility] [place] MEMORY LOSS IS LIKELY DEMENTIA Peripheral vascular disease (09/20/08) decreased pedal pulses; asymptomatic PAD Seborrheic dermatitis of scalp (10/17/16) Quarter size dry scaly area on right forehead at hairline. Encouraged Triamcinolone Cream 1-2 times per day. Hydrate in between with Cetaphil cream or something similar. Weakness generalized (04/02/18) Weight loss observed on examination 03/31/20 - Down 10lbs past 3 months Surgical History Total replacement of hip (~1993) LEFT Trigger Finger release (11/09/15) 05/15/14; [facility]; LEFT MIDDLE FINGER; LEFT PIP JOINT 11/09/15; Dr. Garcia; left ring finger trigger elease & left carpal tunnel release Social History/Home Situation: Lives with grandson and daughter. Per workforce investment act career manager Ann, patient is only alone at home for just about an hour every day. Independent with mobility ADL performance using no assistive device. Equipment Owned/DME: None Subjective: Pleasant and cooperative. Agreeable to PT consult. Denies headache, chest pain, and lightheadedness throughout consult. Did report some mild shortness of breath during a short distance ambulation of about 15 feet without a front wheeled walker. Objective: General Observation: Seated on bedside chair. IV in the right UE. L/R gluteal areas close to spine appears macerated with a small circumscribed opening seen on the L gluteal area close to midline. Nurse/CWS Susi aware. Required to be cleaned up prior to ambulation activity as her depend and sheet are soiled. Mental Status: Alert and is able to follow single step commands. Pain: None reported Vital Signs: Mild SOB during a short distance ambulation without FWW, subsided with rest. ROM: Right Upper Extremity: Shoulder Flexion WFL. Shoulder abduction WFL. Elbow flexion WFL. Wrist flexion WFL. Opening and closing of hand WFL. Left Upper Extremity: Shoulder Flexion WFL. Shoulder abduction WFL. Elbow flexion WFL. Wrist flexion WFL. Opening and closing of hand WFL. Right Lower Extremity: Hip flexion WFL. Hip abduction WFL. Knee flexion WFL. Ankle dorsiflexion WFL. Ankle plantarflexion WFL. Left Lower Extremity: Hip flexion WFL. Hip abduction WFL. Knee flexion WFL. Ankl e dorsiflexion WFL. Ankle plantarflexion WFL. Strength: Right Upper Extremity: Shoulder flexors 4/5. Shoulder abductors 4/5. Elbow flexors 4/5. Elbow extensors 4/5. Shell Shop Supervisor strong. Left Upper Extremity: Shoulder flexors 4/5. Shoulder abductors 4/5. Elbow flexors 4/5. Elbow extensors 4/5. Shell Shop Supervisor strong. Right Lower Extremity: Hip flexors 4-/5. Hip abductors 4-/5. Knee flexors 4-/5. Knee extensors 4-/5. Ankle dorsiflexors 4-/5. Ankle plantarflexors 4-/5. Left Lower Extremity: Hip flexors 4-/5. Hip abductors 4-/5. Knee flexors 4-/5. Knee extensors 4-/5. Ankle dorsiflexors 4-/5. Ankle plantarflexors 4-/5. Sensation: Intact as to pain and pressure on bilateral lower extremities. Bed Mobility/Transfers: Sit to stand SBA Stand to sit SBA Bed to chair SBA Chair to bed SBA Gait: 150 feet using FWW with SBA without SOB. 15 feet without assistive device with CGA and with mild SOB. Up and down 6 x 4 inch steps and 4 x 4 inch small holding onto 1 rail with step over step pattern requiring only standby assist. Balance: Static Sitting: Normal Dynamic Sitting: Normal Static Standing: Fair Dynamic Standing: Fair Special Tests: Mobility Limitations Standardized Measure [facility] AM-[facility] 6 clicks Basic Mobility Inpatient Short Form: Raw Score: 22 CMS Score: 21% deficit 4-stage balance test: Unable to do positions 2-4 and is therefore at risk for falls without the use of an AD. Informed Consent/Education: Patient instructed in purpose of PT consult and plan of care. Assessment: Hallie demonstrates the need for a front wheeled walker for all mobility ADL performance to maximize safety and reduce fall risk at home, impaired safety awareness, and mild decrease in activity tolerance due to admitting diagnoses and co-morbidities. Patient presents with clinical signs and symptoms consistent with current/admitting diagnoses that have resulted to mobility limitations, gait instability, generalized weakness, and impairment of motor control as demon strated by the following impairment level findings: 1. Decreased strength to B LE major muscle groups 2. Impaired standing balance 3. Impaired activity tolerance Impairments are contributing to the following functional limitations: 1. Inability to safely ambulate without assistive device 2. Increase completion time for mobility ADL performance 3. Increased fall risk 3. Inability to negotiate steps alone safely Patient is assessed as a 34327 moderate complexity based on the following: History: 84-year-old female with impairment level findings, functional limitations, and past medical history as indicated above Examination: Demonstrable impairment in strength, balance, and mobility level with underlying impairments and functional limitations as documented above Presentation:Evolving Decision Makin moderate complexity Goals: N/A. PT consult and 1 treatment session only for discharge recommendations and functional mobility training using the front wheeled walker. Plan of Care/Treatment Plan: N/A. PT consult and 1 treatment session only for discharge recommendations and functional mobility training using the front wheeled walker. DISCHARGE RECOMMENDATIONS: Patient will benefit from home health PT services in order to progress mobility level using front wheeled walker, assess home safety, identify additional equipment needs, and establish a functional maintenance program that will increase ability of patient to remain at home. Patient will benefit from the use of a front wheeled walker to maximize safety at home. TREATMENT CODE/TIME: 57831 x 28 minutes beginning at 10:36 AM. Thank you for the opportunity to participate in the care of this patient. Talisha Curiel PT, DPT, CLT [facility] [place], [place]
--- NOTE | 2020-09-21 12:03 | PDOC.CMDIS ---
LACE Index Scoring Tool - Questions: Length of Stay (in days): 2 Acuity (Admit via E.D.?): Yes Comorbidities: PVD, Diabetes w/o Complication, Dementia, Liver or Renal Disease E.D. Visits: 1 - Answers: Total Score: 11 Risk of Readmission: High Risk Care Management Discharge Reason for Hospitalization: C-Difficile Diarrhea Discharge Plan: Hallie will return home when ready per MD, via private vehicle with her daughter and BRAYDENASue. Her family is committed to keeping her at home as long as possible and provide her care. They continue to work closely with CM: Rosa Salas at [facility] to increased service hours. CM spoke with Rosa and OFELIA: Sujatha who shared efforts at transitioning Hallie's [employer] funding to home service dollars. PT provided Hallie a FWW for discharge, and CM coordinated and faxed orders for transfer bench to [facility] to support increased bathroom safety until renovations can be completed. Hallie will follow up with her PCP, plan of care as precribed. Anticipate Palliative will continue to follow as well. Patient/Family Education Needs: Review of discharge instructions, discussion around Hallie's care needs on discharge; family did not wish to have skilled services ordered upon discharge. Services Needed at Discharge: DME Agency (FWW, Transfer bench. ), Home Health Care Services (Case Management), Homemaking Services ([employer]; [employer] flexible. )
--- NOTE | 2020-09-22 07:20 | OTDS_ITS ---
Date of service: 09/22/20 Time of Service: 07:20 Occupational Therapy Notes 09/22/20 Pt was seen for OT consult only on the day of discharge, no further OT services were provided to this pt before being medically cleared per MD. Based on this, OT will plan to formally discharge pt from skilled OT services at this time. Love Villegas OTR/[facility]
== END 2020-09-21 12:25 | disposition home health service (06) | DRG 372 ==
LOC: ER 16:11 → MS 17:08
PROVIDERS: Family Medicine; Nurse Practitioner Family; Physician Assistant; Admitting Provider Family Medicine; Emergency Provider Registered Nurse Emergency; Visit Provider Family Medicine
DX: A04.72 Enterocolitis due to Clostridium difficile, not specified as recurrent (principal); N18.5 Chronic kidney disease, stage 5; I12.0 Hypertensive chronic kidney disease with stage 5 chronic kidney disease or end stage renal disease; N17.9 Acute kidney failure, unspecified; E11.22 Type 2 diabetes mellitus with diabetic chronic kidney disease; E86.0 Dehydration; Z79.4 Long term (current) use of insulin; I73.9 Peripheral vascular disease, unspecified; D63.1 Anemia in chronic kidney disease; M15.9 Polyosteoarthritis, unspecified; H40.9 Unspecified glaucoma; E78.5 Hyperlipidemia, unspecified; E03.9 Hypothyroidism, unspecified; D50.9 Iron deficiency anemia, unspecified; F03.90 Unspecified dementia, unspecified severity, without behavioral disturbance, psychotic disturbance, mood disturbance, and anxiety; Z96.642 Presence of left artificial hip joint; Z87.440 Personal history of urinary (tract) infections; Z66 Do not resuscitate
CPT/HCPCS: 36415; 80048; 80053; 87493; 96360; 97162; 97165; 97535; 99223; 99233; 99239; 99255; 99285; U0003; 83630; 83735; 84439; 84443; 84484; 85025; 99284; J1644

== ENCOUNTER 2020-11-10 19:38 | Outpatient (REF) | payer MEDICARE, MEDICAID, SELFPAY | END 2020-11-10 19:58 | LOC: LBN 19:38 | PROVIDERS: Visit Provider Family Medicine | DX: R30.0 Dysuria (principal) | CPT/HCPCS: 87077; 87086; 87186 ==

== ENCOUNTER 2021-02-03 09:04 | Inpatient (IN) | payer OTHER, SELFPAY ==
[2021-02-03] VITALS (58 sets, daily range): BP systolic 107–190; BP diastolic 59–138; PULSE 74–106; RESP 13–26; TEMP 36.6–37; O2SAT 94–100
--- NOTE | 2021-02-03 09:15 | DI.CT_ITS ---
EXAM: CT CHEST/ABD/PEL WO CLINICAL HISTORY: fall, thoracic and lumbar, left flank pain, renal. TECHNIQUE: Imaging Protocol: Axial computed tomography images with coronal and sagittal reformatted images were created and reviewed CONTRAST MATERIAL: Intravenous: none Oral: None COMPARISON: No exams were available for comparison FINDINGS: CHEST: LUNGS: There are no pulmonary infiltrates nor pleural effusions. In the right lower lobe there is a 5 millimeter noncalcified nodule in the right lower lobe as well as is a 4 millimeter noncalcified no dule seen anterior to this adjacent to the right major fissure at this level. . There also 2 small 4 millimeter nodular densities in the right middle lobe lateral segment. In the opposite-left lung there is a 3 millimeter nodular density in the upper lobe and a subpleural 3 millimeter nodular density in the superior lingular segment. Benign-appearing subpleural markings are noted in the posterior and lateral basal segments. There are no pleural effusions on either side.. There are no focal findings in trachea and mainstem bronchi. MEDIASTINUM: No obvious hilar nor mediastinal adenopathy. Visualized thyroid unremarkable. CARDIAC: Heart size is normal. There is coronary artery calcification which is heavy in the LAD.Thin pericardial effusion noted. Caliber of the thoracic aorta is within normal limits. OSSEOUS: No significant osseous lesions.. ABDOMEN: There is no ascites. LIVER: There are no obvious focal hepatic lesions evident of this noninfused study. GALLBLADDER/BILIARY: Gallbladder difficult to evaluate because of motion artifact CBD is not dilated. PANCREAS: No evidence of obvious pancreatic mass nor dilatation of the pancreatic duct. SPLEEN: Spleen is not enlarged. No obvious intrasplenic lesions. ADRENALS: There are no significant adrenal masses. KIDNEYS: No calculi nor hydronephrosis. No obvious solid renal masses. No cysts evident. ABDOMINAL AORTA: Abdominal aorta is not enlarged. LYMPH NODES: There is no retroperitoneal nor para-aortic adenopathy. ABDOMINAL WALL/GI: No evidence of signature anterior abdominal wall hernia. No bowel obstruction. PELVIS: LYMPH NODES: There is no intrapelvic nor inguinal adenopathy. GI: No evidence of appendicitis.There is extensive sigmoid diverticulosis. No obvious acute divertic ulitis although the sigmoid is somewhat partially obscured by beam hardening artifact from left hip p rosthesis. URINARY BLADDER: There is a Acevedo catheter in the nondistended urinary bladder. Bladder is difficult to evaluate because of beam hardening artifact from the left hip prosthesis. REPRODUCTIVE: Uterus contains calcified fibroids. No abnormal adnexal masses. OSSEOUS: Left hip prosthesis. Advanced degenerative changes noted in the right hip.. No acute fract ures. IMPRESSION: 1. Extensive sigmoid diverticulosis. No obvious acute diverticulitis. However, please note that the sigmoid is partially obscured by beam hardening artifact from the left hip prosthesis. 2. Calcified uterine fibroids 3. Small bilateral pulmonary nodules noted. Follow-up CT scan in 6 months recommended. 4. Thin pericardial effusion. Coronary artery calcification. RADIATION DOSE DELIVERED: 1,115.78mGy.cm Total DLP DATA REPOSITORY: All CT scans at this facility are submitted to the National Radiology Data Registry (NRDR) Dose Index Registry (DIR) with the [employer] ([employer]). RADIATION OPTIMIZATION: All CT scans at this facility use at least one of these dose optimization te chniques: automated exposure control; mA and/or kV adjustment per patient size (includes targeted exa ms where dose is matched to clinical indication); or iterative reconstruction.
--- NOTE | 2021-02-03 09:15 | RT.EKG_ITS ---
APPROVED REPORT Exam: Resting ECG Patient Location: E HR:88 bpm ECG Measurements Heart Rate 88 AXIS OH 210 P 81 QRSd 78 QRS 53 QT 371 T 50 QTc 450 Conclusion Sinus rhythm...normal P axis, V-rate 60- 99
--- NOTE | 2021-02-03 09:15 | DI.CT_ITS ---
EXAM: CT HEAD CERVICAL SPINE WO CLINICAL HISTORY: fall, unwitnessed. TECHNIQUE: Imaging Protocol: Axial computed tomography images with coronal and sagittal reformatted images were created and reviewed COMPARISON: No exams were available for comparison FINDINGS: BRAIN: There are no skull fractures nor fluid in the visualized paranasal sinuses. There is no evidence of intracranial hemorrhage, mass effect, or shift of midline structures. There are no extra-axial fluid collections. The ventricles are not enlarged or shifted and there is no blo od within the ventricular system nor within the basal cisterns. There is some mild bilateral periventricular hypodensity consistent with chronic small vessel disease . No obvious acute territorial infarction CERVICAL SPINE: There is no evidence of fracture nor listhesis. No significant prevertebral soft tissue swelling. There is degenerative disc disease most evident at C5-6 level. Also multilevel advanced facet arthro charles. There is no significant facet joint malalignment. No significant osseous lesions evident. IMPRESSION: No acute intracranial findings on this noninfused CT scan of the brain. No evidence of cervical spine fracture, malalignment, nor acute compromise of the cervical spinal can al. Multilevel degenerative facet arthropathy. Also some calcification noted the supraspinous ligament a t C 4-5 level. RADIATION DOSE DELIVERED: 1,253.47mGy.cm Total DLP DATA REPOSITORY: All CT scans at this facility are submitted to the National Radiology Data Registry (NRDR) Dose Index Registry (DIR) with the [employer] ([employer]). RADIATION OPTIMIZATION: All CT scans at this facility use at least one of these dose optimization te chniques: automated exposure control; mA and/or kV adjustment per patient size (includes targeted exa ms where dose is matched to clinical indication); or iterative reconstruction.
--- NOTE | 2021-02-03 09:31 | ED.GENADUL_ITS ---
Discharge Plan Discharge Details Chief Complaint: Nk/Back Pain Primary Care Provider: Smita Boyer ED Provider: Amber Grewal Home Meds and New Rx's Prescriptions: No Action donepezil 10 mg tablet 5 mg PO DAILY Qty: 90 RF: 0 triamcinolone acetonide 0.5 % cream 1 applic TP BID Qty: 15 RF: 2 acetaminophen [Acetaminophen Extra Strength] 500 MG tablet 500 mg PO TID PRN RF: 0 (DME) blood-glucose meter 1 EACH misc 1 ea Miscellaneous DAILY Qty: 1 RF: 0 naproxen sodium 220 mg tablet 220 mg PO BID PRNRF: 0 amlodipine 5 mg tablet 2.5 - 5 mg PO DAILY Qty: 90 RF: 3 hydrochlorothiazide 25 mg tablet 25 mg PO DAILY Qty: 90 RF: 4 Tresiba FlexTouch U-100 100 unit/mL (3 mL) insulin pen See Rx Instructions SC DAILY Qty: 45 RF: 3 levothyroxine 100 mcg tablet 100 mcg PO DAILY Qty: 90 RF: 3 Tradjenta 5 mg tablet 5 mg PO QAM Qty: 90 RF: 3 cyanocobalamin (vitamin B-12) 1,000 mcg tablet, sublingual 1,000 mcg Sublingual DAILY Qty: 90 RF: 3 (DME) lancets 28 gauge misc 1 ea Miscellaneous DAILY Qty: 200 RF: 4 (DME) Blood Glucose Test Strip 1 ea Miscellaneous DAILY Qty: 200 RF: 4 Nepro Carb Steady 0.08 gram-1.8 kcal/mL liquid 237 ml PO DAILY Qty: 5688 RF: 6 ferrous sulfate 325 mg (65 mg iron) tablet 650 mg PO Q OTHER DAY Qty: 90 RF: 3 atenolol 25 mg tablet 12.5 mg PO DAILY Qty: 90 RF: 4 quetiapine 25 mg tablet 25 mg PO BID PRN (Reason: anxiety/anger) Qty: 60 RF: 3 losartan 25 mg tablet 25 mg PO DAILY Qty: 90 RF: 2 (DME) pen needle, diabetic [BD Ultra-Fine Mini Pen Needle] 31 gauge x 3/16 needle See Dose Instructions .ROUTE .MEDSUPPLY Qty: 100 RF: 4 amoxicillin-pot clavulanate 200-28.5 mg tablet,chewable 1 tab PO BID Qty: 28 RF: 0 metronidazole 500 mg Tablet 500 mg PO TID Qty: 30 RF: 0 Prevalite 4 gram Powder In Packet 1 packet PO BID Qty: 42 RF: 0 Medical Decision Making I called the daughter initially and patient was noted to be on arrival and daughter would be her first to complete evaluation including CT imaging and diagnostic lab performed Given patient confusion and history of Alzheimer's, she is a poor historian and so CT imaging was obtained including diagnostic labs and urine Patient does have I suspect to be a urinary tract infection and started on ceftriaxone as she has had some increasing confusion this week which daughter suspected may be related to urinary tract infection She does state that mother was well yesterday and returned is currently being treated for a abscess to her left great toe Patient was not able to be observed after her fall and left intact on the ground for 2 to 3 hours unable to assist herself in standing and has a acute urinary tract infection stable admit the patient to the hospital for further evaluation and observation He did discuss this with Dr. Spears, hospitalist who preferred that we speak with hospice, Dr. Malissa Spears feels that the patient would be best served by admission by Dr. Leonardo at this time Dr. Leonardo is agreeable to admission Patient has been stable throughout encounter and is sitting up on the edge of the bed with stable vital signs Differential Diagnosis Differential Diagnosis: Metabolic encephalopathy, urine, fracture, electrolyte abnormality Medical Records Medical records reviewed: Yes I reviewed the patient's medical records. Lab Data Lab results reviewed: Yes I reviewed the patient's lab results. HPI This 85-year-old female with past medical history of chronic kidney disease, confusion, iron deficiency anemia, generalized weakness, diabetes presents reported fall. Patient states she remembers the fall but does not remember exactly what happened. She states she was on the floor until this morning when someone checked on her. She states that she has pain on her back, she has not to take and states that it is. She states she felt well prior to the fall. She denies weakness, dizziness, chest pain, shortness of breath contributing to the fall. General Date/Time Provider Initiated Documentation: 02/03/21 09:06 . Related Data Home Medications Medication Instructions Recorded Confirmed acetaminophen [Acetaminophen Extra 500 mg PO TID PRN tab-cap 01/14/13 02/03/21 Strength] blood-glucose meter #1 ea 01/02/18 09/19/20 naproxen sodium 220 mg tablet 220 mg PO BID PRN 07/01/18 02/03/21 amlodipine 5 mg tablet 2.5 - 5 mg PO DAILY #90 tab 11/22/19 02/03/21 cyanocobalamin (vitamin B-12) 1,000 mcg SUBLINGUAL DAILY #90 tab 11/22/19 02/03/21 1,000 mcg sublingual tablet hydrochlorothiazide 25 mg tablet 25 mg PO DAILY #90 tab 11/22/19 02/03/21 insulin degludec 100 unit/mL (3 See Rx Instructions SC DAILY #45 ml 11/22/19 02/03/21 mL) subcutaneous pen levothyroxine 100 mcg tablet 100 mcg PO DAILY #90 tab 11/22/19 02/03/21 linagliptin 5 mg tablet 5 mg PO QAM #90 tab 11/22/19 02/03/21 blood sugar diagnostic #200 strip 12/16/19 09/19/20 lancets 28 gauge #200 each 12/16/19 09/19/20 donepezil 10 mg tablet 5 mg PO DAILY #90 tab 01/08/20 02/03/21 triamcinolone acetonide 0.5 % 1 applic TP BID #15 gm 01/08/20 02/03/21 topical cream nut.tx.imp.renal fxn,lac-reduc 237 ml PO DAILY #5688 ml 02/17/20 02/03/21 0.08 gram-1.8 kcal/mL oral liquid ferrous sulfate 325 mg (65 mg 650 mg PO Q OTHER DAY #90 tab 05/10/20 02/03/21 iron) tablet atenolol 25 mg tablet 12.5 mg PO DAILY #90 tab 06/25/20 02/03/21 quetiapine 25 mg tablet 25 mg PO BID PRN #60 tab 08/06/20 02/03/21 losartan 25 mg tablet 25 mg PO DAILY #90 tab 09/14/20 02/03/21 cholestyramine-aspartame 1 packet PO BID #42 ea 09/21/20 02/03/21 [Prevalite] metronidazole 500 mg PO TID #30 tab 09/21/20 02/03/21 pen needle, diabetic 31 gauge x #100 each 09/23/2001/04 amoxicillin 200 mg-potassium 1 tab PO BID #28 tab 12/27/20 02/03/21 clavulanate 28.5 mg chewable tablet Previous Rx's Medication Instructions Recorded blood-glucose meter #1 ea 01/02/18 amlodipine 5 mg tablet 2.5 - 5 mg PO DAILY #90 tab 11/22/19 cyanocobalamin (vitamin B-12) 1,000 mcg SUBLINGUAL DAILY #90 tab 11/22/19 1,000 mcg sublingual tablet hydrochlorothiazide 25 mg tablet 25 mg PO DAILY #90 tab 11/22/19 insulin degludec 100 unit/mL (3 See Rx Instructions SC DAILY #45 ml 11/22/19 mL) subcutaneous pen levothyroxine 100 mcg tablet 100 mcg PO DAILY #90 tab 11/22/19 linagliptin 5 mg tablet 5 mg PO QAM #90 tab 11/22/19 blood sugar diagnostic #200 strip 12/16/19 lancets 28 gauge #200 each 12/16/19 donepezil 10 mg tablet 5 mg PO DAILY #90 tab 01/08/20 triamcinolone acetonide 0.5 % 1 applic TP BID #15 gm 01/08/20 topical cream nut.tx.imp.renal fxn,lac-reduc 237 ml PO DAILY #5688 ml 02/17/20 0.08 gram-1.8 kcal/mL oral liquid ferrous sulfate 325 mg (65 mg 650 mg PO Q OTHER DAY #90 tab 05/10/20 iron) tablet atenolol 25 mg tablet 12.5 mg PO DAILY #90 tab 06/25/20 quetiapine 25 mg tablet 25 mg PO BID PRN #60 tab 08/06/20 losartan 25 mg tablet 25 mg PO DAILY #90 tab 09/14/20 cholestyramine-aspartame 1 packet PO BID #42 ea 09/21/20 [Prevalite] metronidazole 500 mg PO TID #30 tab 09/21/20 pen needle, diabetic 31 gauge x #100 each 09/23/2001/04 amoxicillin 200 mg-potassium 1 tab PO BID #28 tab 12/27/20 clavulanate 28.5 mg chewable tablet Allergies Allergy/AdvReac Type Severity Reaction Status Date / Time Sulfa (Sulfonamide AdvReac Mild nausea, Verified 02/03/21 09:09 Antibiotics) hives General Stated Complaint: Nk/Back Pain VISHNU: 3 Review of Systems Narrative: Review of systems obtained times 7 aside from where indicated in HPI [facility] Medical History CKD (chronic kidney disease) stage 5, GFR less than 15 ml/min Confusion Degenerative arthritis of right knee (03/25/15) Most recent Synvisc injection: 11/10/19 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 Encouraged Triamcinolone Cream 1-2 times per day. Hydrate in between with Cetaphil cre am or something similar. Weakness generalized (04/02/18) Weight loss observed on examination 03/31/20 - Down 10lbs past 3 months Surgical History Total replacement of hip (~1993) LEFT Trigger Finger release (11/09/15) 05/15/14; [facility]; LEFT MIDDLE FINGER; LEFT PIP JOINT 11/09/15; Dr. Garcia; left ring finger trigger elease & left carpal tunnel release Family History Mother Neoplasm LIVER Father No problems noted. Sister No problems noted. Brother Diabetes Grandfather No problems noted. Grandfather No problems noted. Grandmother No problems noted. Grandmother No problems noted. Son Diabetes Daughter Diabetes Daughter No problems noted. Daughter Diabetes Social History Smoking/Tobacco Use Status: Never Smoking risk assessment performed?: Yes Alcohol Intake: never Drug use: Never Substance use type: does not use Current gender identity: female What type of physical activity do you participate in: none Special marleny needs: No Do you feel safe at home: Yes Do you feel safe in your relationship?: Yes Exam Const General: cooperative and frail appearing [facility] Head: normal to inspection Mouth: oral mucosae normal Eyes Pupils: PERRL Neck Other: No midline tenderness Resp Effort & Inspection: normal respiratory effort Auscultation: clear to auscultation bilaterally Cardio Rate: regular rate Rhythm: regular rhythm GI Other: Mild left flank tenderness, no visible sign of trauma, no abdominal tenderness appreciated Back/Spine/Pelvis Other: Tenderness with palpation. Thoracic and lumbar spine Skin General skin exam: no rashes or lesions noted Other: No visible evidence of trauma Neuro General: patient alert Other: Able to follow basic commands, alert and oriented times month Extrem Other: No visible evidence of trauma Course Vital Signs Vital signs: Vital Signs Temperature 36.9 C 02/03/21 09:06 Pulse 74 02/03/21 09:06 Respiratory Rate 18 02/03/21 09:06 Blood Pressure 174/76 H 02/03/21 09:06 Pulse Oximetry 94 02/03/21 09:06 Temperature 36.9 C 02/03/21 09:06 Temperature Source Skin 02/03/21 09:06 Pulse 74 02/03/21 09:06 Respiratory Rate 18 02/03/21 09:06 Blood Pressure 174/76 H 02/03/21 09:06 Blood Pressure Position Supine 02/03/21 09:06 Pulse Oximetry 94 02/03/21 09:06 Oxygen Delivery Method Room Air 02/03/21 09:06 Oxygen Flow Rate 0 02/03/21 09:06 Pain Level 10 02/03/21 09:06
[2021-02-03] MEDS: Normal Saline 500 ML IV (09:50)
[2021-02-03 09:56] LABS: Abs Immature Grans 0.03 10^3/uL (0.0-0.06); Absolute Basophil Count 0.02 10^3/uL (0.0-0.2); Absolute Eosinophil Count 0.02 10^3/uL (0.0-0.7); Absolute Lymphocyte Count 0.95 10^3/uL (1.2-3.4); Absolute Monocyte Count 0.89 10^3/uL (0.1-0.8); Absolute Neutrophil Count 6.19 10^3/uL (1.2-6.7); Basophils % 0.2; Eosinophils % 0.2; HCT 35.6 % (36.0-46.0); HGB 11.2 g/dL (11.2-15.7); Immature Grans % 0.4; Lymphocytes % 11.7; MCH 28.2 pg (27.0-33.0); MCHC 31.5 % (32.0-36.0); MCV 89.7 fL (80-95); MPV 11.5 fL (8.0-11.0); Neutrophils % 76.5; Nucleated RBC 0 %; Platelet Count 204 10^3/uL (130-400); RBC 3.97 10^6/uL (3.93-5.22); RDW 12.3 % (11.7-14.6)
[2021-02-03 10:14] LABS: ALT 16 U/L (14-59); AST 16 U/L (15-37); Albumin 3.1 g/dL (3.4-5.0); Alkaline Phosphatase 90 U/L (46-116); Anion Gap 13.8 mmol/L (3-11); BUN 45 mg/dL (7-18); Bilirubin, Total 0.5 mg/dL (0.2-1.0); CO2 23.2 mmol/L (21.0-32.0); CREATININE 3.1 mg/dL (0.55-1.02); Calcium 10.4 mg/dL (8.5-10.1); Chloride 106 mmol/L (98-107); Creatine Kinase 33 U/L (26-192); Estimated GFR 14.31 (mL/min/1.73m2); Glucose 104 mg/dL (74-106); Potassium 4.9 mmol/L (3.5-5.1); Sodium 143 mmol/L (136-145); Total Protein 7.7 g/dL (6.4-8.2)
[2021-02-03 10:15] LABS: Troponin I < 0.05 ng/mL (<0.06)
[2021-02-03 11:41] LABS: Bilirubin Negative (Negative); Blood Moderate (Negative); Clarity Cloudy (Clear); Glucose Negative (Negative); Ketones 15 mg/dL (Negative); Leukocyte Esterase Small (Negative); Nitrite Negative (Negative); Specific Gravity 1.025 (1.005-1.025); Urobilinogen 0.2 EU/dL (Up TO 0.2); pH 6.5 (5-8)
[2021-02-03 11:50] LABS: Bacteria Many HPF (Negative); C & S Indicated? Yes; Casts Negative LPF (Negative); Crystals Negative HPF (Negative); Epithelial Cells Negative HPF (Negative); Mucus Moderate (Negative); Other Cells Negative (Negative); RBC >50 HPF (0-2); WBC >50 HPF (0-5)
[2021-02-03 12:17] LABS: Source Nasal/Nares
[2021-02-03] MEDS: Normal Saline 50 ML 100 ML (13:36)
[2021-02-03] MEDS: cefTRIAXone 1 GM VIAL (13:37)
--- NOTE | 2021-02-03 14:36 | W.PM.HP.N ---
Date of service: 02/03/21 Assessment and Plan Assessment and plan (1) CKD (chronic kidney disease) stage 5, GFR less than 15 ml/min: Status: Chronic Assessment and plan: On hospice for this diagnosis, but not related to her ER visit. Creatinine >3. GFR < 15. Still qualifies for hospice based on this. Not interested in dialysis. (2) Hospice care patient: Status: Chronic Assessment and plan: Respite admission. To be at [facility] x 5 night, starting 02/03. (3) Weakness generalized: Status: Chronic Assessment and plan: Rarely gets oob, except to get to BR or commode. Fell this am and family called EMS. Seen in ER for complications of fall, NOT FOR HER CKD. (4) Peripheral vascular disease: Status: Chronic Assessment and plan: I felt her pulses as wnl today. Never a smoker. Does have chronic toe infection ongoing despite multiple rounds of antibiotics; possible poor perfusion contributing to this. (5) Paronychia of great toe: Status: Chronic Assessment and plan: Dr Maciel has been consulted to treat her chronic infection; this is NOT part of her hospice diagnosis and will be covered by her regular Medicare. (6) Fall: Status: Acute Assessment and plan: First time she has fallen since being on hospice, per family. They will work on trying to get caregivers there starting at 5:30 when grandson Ron leaves for work. Hard to find at that time of day. Might need to find alternative placement, though she doesn't want this. (7) Caregiver burden: Status: Chronic Assessment and plan: Family needs a break. Here on RESPITE for 5 nights. History of Present Illness History of Present Illness Chief Complaint: hospice respite; fall; ? uti Narrative: Hallie is an 85 yo woman who has been on hospice for almost 6 months; she is on for chronic kidney disease. I saw her at home last evening, for a chronic toe infection. I consulted Dr Maciel by cell phone, sending him a photo of her toe. He thought she needed a procedure to clear her infection (she's been battling this for more than 4 months) and she was scheduled to see him in his office today for her appointment. She was otherwise well in her home last evening. Her grandson, who lives with her, left for work at his usual 5:30 am time this am. Other relatives come to care for her starting at 8 am. Somewhere between the time he left and they arrived, she fell onto the floor. It is not clear how long she was down. She had not lost consciousness, as far as her family could tell. She has moderate dementia, so she can't tell us. She can still get oob, though she prefers to stay in bed. They found her about 10-15 feet from her bed, on the way to the laundry room, according to her daughter, Sue. Her family called EMS to transport her to the hospital, instead of calling hospice as instructed. In the ER, the provider did not realize she was a hospice patient. She had a full work up. This fall, however, is not considered part of her hospice diagnosis, so the ER visit is NOT covered by hospice. When I talked to Hallie's daughter, it was clear that she and her family needed a break from caring for Hallie. Given that, we decided it would be best if I admitted Hallie for a hospice respite admission, with a plan to discharge her home next Sunday, following 5 nights. 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 Encouraged Triamcinolone Cream 1-2 times per day. Hydrate in between with Cetaphil cream or something similar. Weakness generalized (04/02/18) Weight loss observed on examination 03/31/20 - Down 10lbs past 3 months Surgical History Total replacement of hip (~1993) LEFT Trigger Finger release (11/09/15) 05/15/14; [facility]; LEFT MIDDLE FINGER; LEFT PIP JOINT 11/09/15; Dr. Garcia; left ring finger trigger elease & left carpal tunnel release Family History Mother Neoplasm LIVER Father No problems noted. Sister No problems noted. Brother Diabetes Grandfather No problems noted. Grandfather No problems noted. Grandmother No problems noted. Grandmother No problems noted. Son Diabetes Daughter Diabetes Daughter No problems noted. Daughter Diabetes Social History (Updated 02/03/21 @ 21:50 by Elisabeth Fonseca MD) Smoking/Tobacco Use Status: Never Smoking risk assessment performed?: Yes Alcohol Intake: never Drug use: Never Substance use type: does not use Caregiver/Support person: Yes Household members: family Housing: house Number of Children: 3 number of grandchildren: 6 Communication Needs: Hard of Hearing and Corrective Lenses Education Level: high school Do you need help understanding health information?: Always Pets and animals: Yes Pets and animals: cat(s) and dog(s) Current gender identity: female What is your relationship status?: How often do you talk on the phone with friends or family?: three or more times per week How often do you get together with friends or relatives?: three or more times per week Panel score (0-1 are the most socially isolated patients): 1 What type of physical activity do you participate in: none and sedentary lifestyle Special marleny needs: No Do you feel safe at home: Yes Do you feel safe in your relationship?: Yes Additional Social history: Lives in [facility] with her grandson, Ron, who is with her at nights and on weekends. He works during the day, leaving at 5:30 am. They have hospice aides and family members there caring for her most of the other hours. Family appears to cooperate together well to care for her. She has a dog Jingles and a cat she loves; also loves to feed the birds and watch them outside her window. Very calm. Not demanding. Meds Allergies and Home Medications Allergies Allergy/AdvReac Type Severity Reaction Status Date / Time Sulfa (Sulfonamide AdvReac Mild nausea, Verified 02/03/21 09:09 Antibiotics) hives Home Medications Medication Instructions Recorded Confirmed Type acetaminophen [Acetaminophen Extra 500 mg PO TID PRN tab-cap 01/14/13 02/03/21 History Strength] blood-glucose meter #1 ea 01/02/18 09/19/20 Rx naproxen sodium 220 mg tablet 220 mg PO BID PRN 07/01/18 02/03/21 History amlodipine 5 mg tablet 2.5 - 5 mg PO DAILY #90 tab 11/22/19 02/03/21 Rx cyanocobalamin (vitamin B-12) 1,000 mcg SUBLINGUAL DAILY #90 tab 11/22/19 02/03/21 Rx 1,000 mcg sublingual tablet hydrochlorothiazide 25 mg tablet 25 mg PO DAILY #90 tab 11/22/19 02/03/21 Rx insulin degludec 100 unit/mL (3 See Rx Instructions SC DAILY #45 ml 11/22/19 02/03/21 Rx mL) subcutaneous pen levothyroxine 100 mcg tablet 100 mcg PO DAILY #90 tab 11/22/19 02/03/21 Rx linagliptin 5 mg tablet 5 mg PO QAM #90 tab 11/22/19 02/03/21 Rx blood sugar diagnostic #200 strip 12/16/19 09/19/20 Rx lancets 28 gauge #200 each 12/16/19 09/19/20 Rx donepezil 10 mg tablet 5 mg PO DAILY #90 tab 01/08/20 02/03/21 Rx triamcinolone acetonide 0.5 % 1 applic TP BID #15 gm 01/08/20 02/03/21 Rx topical cream nut.tx.imp.renal fxn,lac-reduc 237 ml PO DAILY #5688 ml 02/17/20 02/03/21 Rx 0.08 gram-1.8 kcal/mL oral liquid ferrous sulfate 325 mg (65 mg 650 mg PO Q OTHER DAY #90 tab 05/10/20 02/03/21 Rx iron) tablet atenolol 25 mg tablet 12.5 mg PO DAILY #90 tab 06/25/20 02/03/21 Rx quetiapine 25 mg tablet 25 mg PO BID PRN #60 tab 08/06/20 02/03/21 Rx losartan 25 mg tablet 25 mg PO DAILY #90 tab 09/14/20 02/03/21 Rx cholestyramine-aspartame 1 packet PO BID #42 ea 09/21/20 02/03/21 Rx [Prevalite] metronidazole 500 mg PO TID #30 tab 09/21/20 02/03/21 Rx pen needle, diabetic 31 gauge x #100 each 09/23/20 Rx 01/04 amoxicillin 200 mg-potassium 1 tab PO BID #28 tab 12/27/20 02/03/21 Rx clavulanate 28.5 mg chewable tablet Exam Const General: cooperative and frail appearing HENMT Head: normal to inspection Mouth: oral mucosae normal Eyes Pupils: PERRL Neck Other: No midline tenderness Resp Effort & Inspection: normal respiratory effort Auscultation: clear to auscultation bilaterally Cardio Rate: regular rate Rhythm: regular rhythm GI Other: soft, NT,no masses, + bs wnl Skin General skin exam: no rashes or lesions noted Other: No visible evidence of trauma Neuro General: patient alert Other: Able to follow basic commands, alert and oriented times month and place and self. Extrem Other: No visible evidence of trauma Psych Appearance: grossly normal Speech and Movement: delayed speech and slowed movement Mood: congruent mood and euthymic mood Affect: normal affect Attitude: cooperative Thought Process: impoverished Insight: limited Judgment: limited Results Labs Result diagrams: 02/03/21 09:45 02/03/21 09:45 Labs: Laboratory Results - last 24 hr 02/03/21 02/03/21 02/03/21 09:45 09:45 11:30 WBC 8.10 RBC 3.97 Hgb 11.2 Hct 35.6 L MCV 89.7 MCH 28.2 MCHC 31.5 L RDW 12.3 Plt Count 204 MPV 11.5 H Immature Gran % 0.4 Neutrophils % 76.5 Lymphocytes % 11.7 Monocytes % 11.0 Eosinophils % 0.2 Basophils % 0.2 Nucleated RBC % 0 Absolute Neutrophils 6.19 Absolute Lymphocytes 0.95 L Absolute Monocytes 0.89 H Absolute Eosinophils 0.02 Absolute Basophils 0.02 Sodium 143 Potassium 4.9 Chloride 106 Carbon Dioxide 23.2 Anion Gap 13.8 H BUN 45 H Creatinine 3.1 H Estimated GFR/1.73 m2 14.31 Glucose 104 Calcium 10.4 H Total Bilirubin 0.5 AST 16 ALT 16 Alkaline Phosphatase 90 Creatine Kinase 33 Troponin I < 0.05 Total Protein 7.7 Albumin 3.1 L Urine Color Yellow Urine Clarity Cloudy Urine pH 6.5 Ur Specific [place] 1.025 Urine Protein 100 H Urine Ketones 15 H Urine Blood Moderate H Urine Nitrite Negative Urine Bilirubin Negative Urine Urobilinogen 0.2 Ur Leukocyte Esterase Small H Urine RBC >50 H Urine WBC >50 H Ur Epithelial Cells Negative Urine Crystals Negative Urine Bacteria Many Urine Casts Negative Urine Mucus Moderate Urine Other Negative Ur Culture Indicated? Yes Urine Glucose Negative COVID-19 Source 02/03/21 12:07 WBC RBC Hgb Hct MCV MCH MCHC RDW Plt Count MPV Immature Gran % Neutrophils % Lymphocytes % Monocytes % Eosinophils % Basophils % Nucleated RBC % Absolute Neutrophils Absolute Lymphocytes Absolute Monocytes Absolute Eosinophils Absolute Basophils Sodium Potassium Chloride Carbon Dioxide Anion Gap BUN Creatinine Estimated GFR/1.73 m2 Glucose Calcium Total Bilirubin AST ALT Alkaline Phosphatase Creatine Kinase Troponin I Total Protein Albumin Urine Color Urine Clarity Urine pH Ur Specific [place] Urine Protein Urine Ketones Urine Blood Urine Nitrite Urine Bilirubin Urine Urobilinogen Ur Leukocyte Esterase Urine RBC Urine WBC Ur Epithelial Cells Urine Crystals Urine Bacteria Urine Casts Urine Mucus Urine Other Ur Culture Indicated? Urine Glucose COVID-19 Source Nasal/nares Last Vital Signs Temp 98.4 F 02/03/21 09:06 Pulse 92 H 02/03/21 14:15 Resp 18 02/03/21 14:20 BP 160/61 H 02/03/21 14:15 Pulse Ox 97 02/03/21 14:20 COVID-19 Screening Have you, or household traveled for leisure in last 14 days?: No Had IN PERSON contact w/suspected or confirmed C-19 person: No
[2021-02-03 17:12] LABS: COVID-19 PCR Negative (Negative)
[2021-02-03] MEDS: Normal Saline Flush 10 ML SYR IVP (20:16)
[2021-02-03] MEDS: Docusate Sodium 100 MG CAP PO (20:16)
[2021-02-03] MEDS: Lidocaine Patch Removal 1 EACH TD (23:02)
[2021-02-04 07:37] VITALS: BP 155/76; PULSE 88; RESP 14; TEMP 36.5; O2SAT 99
[2021-02-04] MEDS: Lidocaine 5% Patch 1 PATCH TP (08:48)
[2021-02-04] MEDS: Docusate Sodium 100 MG CAP PO ×2 (08:48→20:19)
--- NOTE | 2021-02-04 11:09 | W.PODCONSULT ---
Date of service: 02/04/21 Time of Service: 11:10 History of Present Illness History of Present Illness Chief Complaint: Chronic paronychia right hallux Narrative: 85-year-old female who has had a chronic right paronychia of the hallux which has not responded to several rounds of oral antibiotics. 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 Encouraged Triamcinolone Cream 1-2 times per day. Hydrate in between with Cetaphil cream or something similar. Weakness generalized (04/02/18) Weight loss observed on examination 03/31/20 - Down 10lbs past 3 months Surgical History Total replacement of hip (~1993) LEFT Trigger Finger release (11/09/15) 05/15/14; [facility]; LEFT MIDDLE FINGER; LEFT PIP JOINT 11/09/15; Dr. Garcia; left ring finger trigger elease & left carpal tunnel release Family History Mother Neoplasm LIVER Father No problems noted. Sister No problems noted. Brother Diabetes Grandfather No problems noted. Grandfather No problems noted. Grandmother No problems noted. Grandmother No problems noted. Son Diabetes Daughter Diabetes Daughter No problems noted. Daughter Diabetes Social History Smoking/Tobacco Use Status: Never Smoking risk assessment performed?: Yes Alcohol Intake: never Drug use: Never Substance use type: does not use Caregiver/Support person: Yes Household members: family Housing: house Number of Children: 3 number of grandchildren: 6 Communication Needs: Hard of Hearing and Corrective Lenses Education Level: high school Do you need help understanding health information?: Always Pets and animals: Yes Pets and animals: cat(s) and dog(s) Current gender identity: female What is your relationship status?: How often do you talk on the phone with friends or family?: three or more times per week How often do you get together with friends or relatives?: three or more times per week Panel score (0-1 are the most socially isolated patients): 1 What type of physical activity do you participate in: none and sedentary lifestyle Special marleny needs: No Do you feel safe at home: Yes Do you feel safe in your relationship?: Yes Additional Social history: Lives in [facility] with her grandson, Ron, who is with her at nights and on weekends. He works during the day, leaving at 5:30 am. They have hospice aides and family members there caring for her most of the other hours. Family appears to cooperate together well to care for her. She has a dog Jingles and a cat she loves; also loves to feed the birds and watch them outside her window. Very calm. Not demanding. Exam Narrative Exam Narrative: Pleasant 85-year-old female seen in her bed resting comfortably for evaluation of her chronic paronychia affecting the right great toe. Peripheral pulses are diminished but palpable at the ankle, capillary refills under 4 seconds to all toes, no peripheral edema, calves are soft to palpation, no findings of DVT. Muscle groups are 5 out of 5 bilaterally although deconditioned. Skeletal exam appeared grossly benign. Dermatologic exam reveals onychomycotic changes to the nails. The toenails are yellowish-white, thickened, crumbly, dystrophic, hypertrophic, elongated and in need of debridement. The right great toenail is distally lysed with an abscess noted affecting the proximal medial aspect of the proximal nail fold. No cellulitis is observed at this time. Remaining exam is otherwise benign Neurologically she appears grossly intact. She responds to pain. Impressions: Pyogenic paronychia right hallux Onychomycosis with onychogryphosis Plan: The right hallux paronychia will likely not resolve without avulsion of the nail plate and evacuation of the proximal abscess. This was explained to Hallie who agrees for me to proceed with a I&D of the right great toe. Procedure note: The right hallux was anesthetized with 3 cc 1% lidocaine plain in a standard digital block. Tourniquet was applied to the base of the toe. Hemostat was used to remove the soft tissue from the proximal portion of the nail, and the toenail was easily avulsed from the nail bed. No lacerations or gross defects of the nailbed were noted. A small quantity of thick purulent material was evacuated from the proximal medial nail fold of the hallux. No sinus tracking was observed. I could not palpate the bone although it is clearly very close to the nail bed surface. Once the region was appropriately curettaged, the nailbed was dressed with bacitracin gauze dressings and the tourniquet released. Wound care will consist of washing the digit once a day beginning tomorrow with soap and water and applying a light dressing over the toe until all drainage stops. She is currently on ceftriaxone IV antibiotics for UTI which will provide excellent coverage for the paronychia area as well. I manually debrided all remaining toenails atraumatically to patient tolerance. I will be happy to follow-up if she has any difficulties but I anticipate none. Thank you for this consultation. Results Last Vital Signs Temp 36.5 C 02/04/21 07:37 Pulse 88 02/04/21 07:37 Resp 14 02/04/21 07:37 BP 155/76 H 02/04/21 07:37 Pulse Ox 99 02/04/21 07:37 Labs Result diagrams: 02/03/21 09:45 02/03/21 09:45 Labs: Laboratory Results - last 24 hr 02/03/21 02/03/21 11:30 12:07 Urine Color Yellow Urine Clarity Cloudy Urine pH 6.5 Ur Specific [place] 1.025 Urine Protein 100 H Urine Ketones 15 H Urine Blood Moderate H Urine Nitrite Negative Urine Bilirubin Negative Urine Urobilinogen 0.2 Ur Leukocyte Esterase Small H Urine RBC >50 H Urine WBC >50 H Ur Epithelial Cells Negative Urine Crystals Negative Urine Bacteria Many Urine Casts Negative Urine Mucus Moderate Urine Other Negative Ur Culture Indicated? Yes Urine Glucose Negative COVID-19 Source Nasal/nares SARS-CoV-2 (PCR) Negative
[2021-02-04] MEDS: cefTRIAXone 1 GM/50 ML BAG IVPB (12:54)
[2021-02-04] MEDS: Normal Saline Flush 10 ML SYR IVP (12:54)
--- NOTE | 2021-02-04 15:41 | CHAPLAIN ---
Hallie was resting in bed when I visited. She was pleasant, unsure of some information I asked about. She didn't know if any family members were planning to come in to visit her. She said most of them work. Hallie seemed content and comfortable here, and seemed to like the purple prayer shawl I gave her.
--- NOTE | 2021-02-04 17:15 | PDOC.CMPRO ---
- If Service Date Differs Date of service: 02/04/21 Time of Service: 17:15 Care Management Progress Note S/O: Hallie is a hospice patient, admitted to [facility] for respite due to caregiver burden. She has been on hospice for about six months for chronic kidney disease. She lives with her grandson, Ron. She is alone for short periods of time throughout the day, after Ron leaves for work at 5:30am, until family arrives around 8am. During this time, she fell and was found down by her family member who arrived to visit with her. She was taken to [facility] via ambulance, and had a full work up in the ED, as the provider was not aware that she is on Hospice. Once hospice was notified, she was admitted by Dr. Fonseca for respite. The family is working on having care givers in the home for 14/05 support. She will remain at [facility] until February 08. She will then return home with family and hospice support. CM will continue to follow. A: Hallie is an 85 year old female admitted to [facility] on 02/04/21 for hospice respite. P: Hallie will remain at [facility] for five respite nights, and will return home on 02/08/21. She will transport via ambulance, if indicated. She will be followed by Hospice in the community. CM will continue to support Hallie, her family, and the hospice team with discharge plan considerations.
[2021-02-04] MEDS: LORazepam 0.5 MG TAB PO (20:19)
--- NOTE | 2021-02-05 08:39 | W.PM.PROGNOT ---
Date of Service Date of service: 02/05/21 Time of Service: 08:39 Assessment and Plan Assessment and plan (1) Paronychia of great toe: Status: Chronic Assessment and plan: Thanks to Dr Maciel for his care. Changing to PO antibiotics today. Will continue x 1 week. Hopefully, she will be pain free for a while. (2) Hospice care patient: Status: Chronic Assessment and plan: On respite, but wanted to check in on her. Plan is for her to go home with family on Sunday. I spoke to her daughter, Sue, on admission and reminded her that Hallie can have 5 nights of respite every month if needed. (3) Acute on chronic renal failure: Status: Acute Assessment and plan: Primary reason for her hospice diagnosis. Slow decline. Qualifiers: Acute renal failure type: unspecified Chronic kidney disease stage: stage 3 (moderate) Chronic kidney disease stage 3 subtype: unspecified whether 3a or 3b Qualified Code(s): N17.9 - Acute kidney failure, unspecified; N18.30 - Chronic kidney disease, stage 3 unspecified (4) Vascular dementia: Status: Chronic Assessment and plan: Notable worse now that she is in the hospital, doesn't have her familiar environment to cue her. Will watch for agitation. None noted so far. (5) CKD (chronic kidney disease) stage 5, GFR less than 15 ml/min: Status: Chronic (6) Weakness generalized: Status: Chronic Assessment and plan: She has been very sedentary for years now. Weak in both legs and arms. Not safe to be ambulating unattended. This is what led to her fall and transport to ER by EMS. Subjective Subjective Patient reports: no new complaints, feels better and pain is less (right great toe feels much better since Dr Maciel's treatment) Interval history since last seen: Hallie says she is very appreciative of the young people taking care of her. She feels very comfortable at [facility] and especially liked the care from her night nurse, Michael. Her toe feels better, she reports. She wasn't sure where she was this morning. She thought she was at home. When I reminded her she was in the hospital, I asked if she wanted to live somewhere else than home, so she could have more hands-on caregiving. She said she wants to be her dog, Jingles, who sleeps on her bed with her and must miss me terrible. The plan at this time is for her to go home on Sunday. She should be able to be transported by private vehicle. Note that when she first was admitted, I forgot to reconcile her home medications, as this was an unusal admission (from the ER, where she was being evaluated for a fall). She is now back on her home medications. I also switched her over to oral antibiotics today, in anticipation of her going home on Sunday. Thanks to Dr Maciel for caring for her toe. That had been causing her discomfort for most of 2020. Exam Const General: cooperative and frail appearing HENMT Head: normal to inspection Mouth: oral mucosae normal Eyes Pupils: PERRL Neck Other: No midline tenderness Resp Effort & Inspection: normal respiratory effort Auscultation: clear to auscultation bilaterally Cardio Rate: regular rate Rhythm: regular rhythm GI Other: soft, NT,no masses, + bs wnl Skin General skin exam: no rashes or lesions noted Other: No visible evidence of trauma Neuro General: patient alert Other: Able to follow basic commands, oriented only to self on 4/17 am. Extrem Other: No visible evidence of trauma Right great toe is bandaged per Dr Maciel's orders. Reduced PT pulses but DP wnl. Psych Appearance: grossly normal Speech and Movement: delayed speech and slowed movement Mood: congruent mood and euthymic mood Affect: normal affect Attitude: cooperative Thought Process: impoverished Insight: limited Judgment: limited Objective Last Vital Signs Temp 97.7 F 02/04/21 07:37 Pulse 88 02/04/21 07:37 Resp 14 02/04/21 07:37 BP 155/76 H 02/04/21 07:37 Pulse Ox 99 02/04/21 07:37
--- NOTE | 2021-02-05 09:21 | CMPROGNOTE_ITS ---
- If Service Date Differs Date of service: 02/05/21 Time of Service: 09:21 Care Management Progress Note S/O: Hallie was resting when CM met with her. She was smiling and stated that she felt good. Hallie is a hospice patient, admitted to [facility] for respite due to caregiver burden. She has been on hospice for about six months for chronic kidney disease. She lives with her grandson, Ron. She is alone for short periods of time throughout the day, after Ron leaves for work at 5:30am, until family arrives around 8am. The family is working on having care givers in the home for 14/05 support. She will remain at [facility] until February 08. She will then return home with family and hospice support. CM will continue to follow. A: Hallie is an 85 year old female admitted to [facility] on 02/04/21 for hospice respite. P: Hallie will remain at [facility] for five respite nights, and will return home on 02/08/21. She will transport via ambulance, if indicated. She will be followed by Hospice in the community. CM will continue to support Hallie, her family, and the hospice team with discharge plan considerations.
[2021-02-05 09:48] VITALS: BP 149/81; PULSE 81; RESP 16; TEMP 36.3; O2SAT 99
[2021-02-05] MEDS: Lidocaine 5% Patch 1 PATCH TP (09:51)
[2021-02-05] MEDS: Losartan 25 MG TAB PO (09:51)
[2021-02-05] MEDS: Docusate Sodium 100 MG CAP PO ×2 (09:51→19:53)
[2021-02-05] MEDS: Levothyroxine 100 MCG TAB PO (09:52)
[2021-02-05] MEDS: amLODIPine 5 MG TAB PO (09:52)
[2021-02-05] MEDS: Amoxicillin 500/Clav. 125 TAB PO ×2 (11:07→19:53)
--- NOTE | 2021-02-05 13:38 | NUR.NOTE ---
Nursing Note: At 1330 on 02/05/21, this RN returned a call from the pt.'s daughter, Sue. RN updated pt.'s daughter regarding pt.'s mentation, VS, pain level, head to toe assessment, plan of care, etc. Pt.'s daughter verbalized understanding and presented with a few questions that were answered. RN will reassess as necessary.
[2021-02-05 15:16] VITALS: BP 125/74; PULSE 88
[2021-02-05] MEDS: Lidocaine Patch Removal 1 EACH TD (19:53)
[2021-02-06] MEDS: Levothyroxine 100 MCG TAB PO (06:13)
[2021-02-06 08:13] VITALS: BP 158/79; PULSE 85; RESP 17; TEMP 36.5; O2SAT 96
[2021-02-06] MEDS: Atenolol 25 MG TAB 12.5 MG PO (08:15)
[2021-02-06] MEDS: Losartan 25 MG TAB PO (08:15)
[2021-02-06] MEDS: Lidocaine 5% Patch 1 PATCH TP (08:15)
[2021-02-06] MEDS: amLODIPine 5 MG TAB 2.5 MG PO (08:15)
[2021-02-06] MEDS: Amoxicillin 500/Clav. 125 TAB PO ×2 (08:15→20:38)
[2021-02-06] MEDS: Docusate Sodium 100 MG CAP PO ×2 (08:15→20:38)
--- NOTE | 2021-02-06 14:05 | NUR.NOTE ---
Nursing Note: At 1405 on 02/06/21, this RN answered a call from the pt.'s daughter, Sue. RN updated the pt.'s daughter regarding the pt.'s mentation, VS, pain level, head to toe assessment, plan of care, etc. Pt.'s daughter verbalized understanding and presented with a few questions that were answered. RN will reassess as necessary.
--- NOTE | 2021-02-06 16:22 | CMPROGNOTE_ITS ---
- If Service Date Differs Date of service: 02/06/21 Time of Service: 16:22 Care Management Progress Note S/O: No change in plan. Hallie is sleeping when CM comes to meet with her and CM chooses to not wake her up. A review of her chart reveals that Hallie is a hospice patient, admitted to [facility] for respite due to caregiver burden. She has been on hospice for about six months for chronic kidney disease. She lives with her grandson, Ron. She is alone for short periods of time throughout the day, after Ron leaves for work at 5:30am, until family arrives around 8am. The family is working on having care givers in the home for 14/05 support. She will remain at [facility] until February 08. She will then return home with family and hospice support. CM will continue to follow. A: Hallie is an 85 year old female admitted to [facility] on 02/04/21 for hospice respite. P: No change in plan. Hallie will remain at [facility] for five respite nights, and will return home on 02/08/21. She will transport via ambulance, if indicated. She will be followed by Hospice in the community. CM will continue to support Hallie, her family, and the hospice team with discharge plan considerations.
[2021-02-06] MEDS: Lidocaine Patch Removal 1 EACH TD (20:38)
[2021-02-07] MEDS: Levothyroxine 100 MCG TAB PO (06:10)
[2021-02-07] MEDS: amLODIPine 5 MG TAB 2.5 MG PO (08:31)
[2021-02-07] MEDS: Lidocaine 5% Patch 1 PATCH TP (08:31)
[2021-02-07] MEDS: Amoxicillin 500/Clav. 125 TAB PO ×2 (08:31→19:59)
[2021-02-07] MEDS: Docusate Sodium 100 MG CAP PO ×2 (08:31→19:59)
[2021-02-07] MEDS: Losartan 25 MG TAB PO (08:31)
[2021-02-07] MEDS: Atenolol 25 MG TAB 12.5 MG PO (08:31)
--- NOTE | 2021-02-07 10:35 | W.NUTRFU ---
Date of service: 02/07/21 Time of Service: 10:35 Nutritional Follow up NOTE: 85 year old female admitted s/p fall at home for respite care. Has been hospice pt x 6 months for CKD stage 5. Following soft bite sized diet with poor intake. Weight loss noted in last 6 months. BMI on low end of normal. Will continue to provide meal preferences to encourage po intake. WIll continue to follow. Time Spent in Nutritional Counseling and Treatment: 0
--- NOTE | 2021-02-07 14:34 | CHAPLAIN ---
Hallie was sitting up in her chair when I visited. She does not share a lot of information. She said she hasn't heard from any relatives, and wonders about that. I will continue to visit.
--- NOTE | 2021-02-07 19:32 | CMPROGNOTE_ITS ---
- If Service Date Differs Date of service: 02/07/21 Time of Service: 19:32 Care Management Progress Note S/O: Hallie was sleeping when CM attempted to meet with her. She appeared comfortable. No change in plan at this time. CM will continue to follow. A: Hallie is an 85 year old female admitted to [facility] on 02/04/21 for hospice respite. P: No change in plan. Hallie will remain at [facility] for five respite nights, and will return home on 02/08/21. She will transport via ambulance, if indicated. She will be followed by Hospice in the community. CM will continue to support Hallie, her family, and the hospice team with discharge plan considerations.
[2021-02-07] MEDS: Lidocaine Patch Removal 1 EACH TD (19:59)
[2021-02-08] MEDS: Levothyroxine 100 MCG TAB PO (06:13)
[2021-02-08] MEDS: Atenolol 25 MG TAB 12.5 MG PO (07:51)
[2021-02-08] MEDS: Docusate Sodium 100 MG CAP PO (07:51)
[2021-02-08] MEDS: Lidocaine 5% Patch 1 PATCH TP (07:51)
[2021-02-08] MEDS: amLODIPine 5 MG TAB 2.5 MG PO (07:52)
[2021-02-08] MEDS: Amoxicillin 500/Clav. 125 TAB PO (07:52)
[2021-02-08] MEDS: Losartan 25 MG TAB PO (07:52)
--- NOTE | 2021-02-08 13:11 | W.PM.PROGNOT ---
Date of Service Date of service: 02/08/21 Time of Service: 13:12 Objective Last Vital Signs Temp 36.5 C 02/06/21 08:13 Pulse 85 02/06/21 08:13 Resp 17 02/06/21 08:13 BP 158/79 H 02/06/21 08:13 Pulse Ox 96 02/06/21 08:13
--- NOTE | 2021-02-08 13:45 | DSE_ITS ---
Date of service: 02/08/21 Time of Service: 13:00 DS: Diagnosis Discharge Diagnosis (1) Paronychia of great toe: Status: Chronic (2) Hospice care patient: Status: Chronic (3) Acute on chronic renal failure: Status: Acute (4) Vascular dementia: Status: Chronic (5) CKD (chronic kidney disease) stage 5, GFR less than 15 ml/min: Status: Chronic (6) Weakness generalized: Status: Chronic Discharge Plan Disposition Patient Disposition: HOME Condition: Stable Discharge Details Reason For Visit: FALL,WEAKNESS, HOSPICE RESPITE CARE Admit Date/Time: 02/03/21 14:31 Admit Provider: Elisabeth Fonseca Attending Provider: Elisabeth Fonseca Primary Care Provider: Smita Boyer Hospital Course Hospital Course: Hallie Giron is a very pleasant 85 year old female who is on hospice for CKD, who had a fall at home and was found down when her family arrived to care for her. Her family called EMS and she was transported to the hospital, they did not understand that they should call hospice first. She was worked up in the ED for her fall, which is not related to her hospice diagnosis, however, it was decided to admit her for respite at that time. While in the ED, she had a CT chest abd and pelvis, which did not show an acute process. She did not get out of bed during her 5 day stay. She reported pain in her RLE intermittently. On the day of discharge, nursing attempted to get her out of bed and she was unable to do so due to RLE pain. On exam, she had pinpoint tenderness on palpation proximal to her right knee. She did not have swelling or ecchymoiss. During examination of her right great toe, she experienced pain in her right leg as well. Her family had concerns related to taking her home if she cannot stand. An x-ray of her RLE was ordered to rule out fracture. APAP is scheduled for pain, she also has lidoderm patch on the site. Mery has completed her 5 days of respite at this point. She is discharged home with resumption of home hospice services. Home Meds and New Rx's Prescriptions: New amoxicillin-pot clavulanate 500-125 mg Tablet 1 tab PO BID Qty: 5 RF: 0 lidocaine [Lidoderm] 5 % Adhesive Patch,Medicated 1 patch topical DAILY Qty: 15 RF: 0 Continued donepezil 10 mg tablet 5 mg PO DAILY Qty: 90 RF: 0 triamcinolone acetonide 0.5 % cream 1 applic TP BID Qty: 15 RF: 2 acetaminophen [Acetaminophen Extra Strength] 500 MG tablet 500 mg PO TID PRN RF: 0 (DME) blood-glucose meter 1 EACH misc 1 ea Miscellaneous DAILY Qty: 1 RF: 0 naproxen sodium 220 mg tablet 220 mg PO BID PRNRF: 0 amlodipine 5 mg tablet 2.5 - 5 mg PO DAILY Qty: 90 RF: 3 hydrochlorothiazide 25 mg tablet 25 mg PO DAILY Qty: 90 RF: 4 Tresiba FlexTouch U-100 100 unit/mL (3 mL) insulin pen See Rx Instructions SC DAILY Qty: 45 RF: 3 levothyroxine 100 mcg tablet 100 mcg PO DAILY Qty: 90 RF: 3 Tradjenta 5 mg tablet 5 mg PO QAM Qty: 90 RF: 3 cyanocobalamin (vitamin B-12) 1,000 mcg tablet, sublingual 1,000 mcg Sublingual DAILY Qty: 90 RF: 3 (DME) lancets 28 gauge misc 1 ea Miscellaneous DAILY Qty: 200 RF: 4 (DME) Blood Glucose Test Strip 1 ea Miscellaneous DAILY Qty: 200 RF: 4 Nepro Carb Steady 0.08 gram-1.8 kcal/mL liquid 237 ml PO DAILY Qty: 5688 RF: 6 ferrous sulfate 325 mg (65 mg iron) tablet 650 mg PO Q OTHER DAY Qty: 90 RF: 3 atenolol 25 mg tablet 12.5 mg PO DAILY Qty: 90 RF: 4 quetiapine 25 mg tablet 25 mg PO BID PRN (Reason: anxiety/anger) Qty: 60 RF: 3 losartan 25 mg tablet 25 mg PO DAILY Qty: 90 RF: 2 (DME) pen needle, diabetic [BD Ultra-Fine Mini Pen Needle] 31 gauge x 3/16 needle See Dose Instructions .ROUTE .MEDSUPPLY Qty: 100 RF: 4 Prevalite 4 gram Powder In Packet 1 packet PO BID Qty: 42 RF: 0 Discontinued amoxicillin-pot clavulanate 200-28.5 mg tablet,chewable 1 tab PO BID Qty: 28 RF: 0 metronidazole 500 mg Tablet 500 mg PO TID Qty: 30 RF: 0 Discharge Instructions Instructions: Paronychia (ED), Fall Prevention for Older Adults (DC) Stand Alone Forms: Nursing Discharge Form Referrals: Smita Boyer NP [Primary Care Provider] - (they will call you with an appt) Activity:: Activity as Tolerated Equipment/Supplies:: No Equipment Needed Diet:: As Tolerated Discharge Orders Discharge Orders: Discharge Order (Routine); Ordered 02/08/21 Ordered By: Kae Mclean DS: Summary Time Spent with Patient providing and/or coordinating discharge services: Greater than 30 minutes Status at Discharge Functional status at discharge: bed bound Overall status at discharge: patient is progressing back to baseline Mental Status: mental status grossly normal (dementia) Speech and Movement: speech and movement normal Mood: congruent mood Affect: normal affect Exam Narrative Exam Narrative: General: elderly female, laying in bed with HOB elevated, appears fatigued. Answering questions appropriately. Appears uncomfortable when her RLE is moved. HEENT: normocephalic, atraumatic, pupils equal and round, makes good eye contact, mucous membranes moist. Neck: supple, no JVD. Cardiovascular: heart sounds regular, no murmur. Respiratory: respirations appear even and unlabored, lung sounds are clear throughout. GI: abdomen soft, nontender on palpation, nondistended, +BS. Extremities: + discomfort on palpation proximal to right knee, no ecchymosis or swelling. Right great toe with erythema, improved from previous, toe nail removed, no drainage. Psych Mental Status: mental status grossly normal (dementia) Speech and Movement: speech and movement normal Mood: congruent mood Affect: normal affect DS: Data Vitals/I&O Vitals and I&O: Vital Signs Temperature 36.5 C 02/06/21 08:13 Temperature Source Skin 02/06/21 08:13 Pulse 85 02/06/21 08:13 Pulse Rhythm Regular 02/05/21 06:10 Pulse 105 H 02/03/21 15:01 Respiratory Rate 17 02/06/21 08:13 Respiratory Effort Non-Labored 02/05/21 06:10 Respiratory Depth Normal 02/05/21 06:10 Respiratory Pattern Normal 02/05/21 06:10 Blood Pressure 158/79 H 02/06/21 08:13 Blood Pressure Mean 83 02/03/21 14:45 Blood Pressure Position Supine 02/03/21 09:06 Pulse Oximetry 96 04/18/21 08:13 Oxygen Delivery Method Room Air 02/06/21 08:13 Oxygen Flow Rate 0 02/06/21 08:13 Pain Level 0 02/06/21 16:45 Comment 02/06/21 16:45 Intake & Output 02/07/21 02/08/21 02/08/21 23:59 11:59 23:59 Intake Total 240 / 600 120 / 240 120 / 240 Output Total 250 / 750 275 / 275 Balance -10 / -150 -155 / -35 120 / -35 Intake: Oral 240 / 600 120 / 240 120 / 240 Output: Urine 250 / 750 275 / 275 Other: Urine Color Yellow Yellow Urine Appearance Clear Clear Stool Size Smear Stool Characteristics Brown Voiding Methods Diaper Data Completed and Pending Completed studies during hospitalization [Text1]: 02/03/21 CT chest/abd/pelvis: IMPRESSION: 1. Extensive sigmoid diverticulosis. No obvious acute diverticulitis. However, please note that the sigmoid is partially obscured by beam hardening artifact from the left hip prosthesis. 2. Calcified uterine fibroids 3. Small bilateral pulmonary nodules noted. Follow-up CT scan in 6 months recommended. 4. Thin pericardial effusion. Coronary artery calcification. CT head and cervical spine: IMPRESSION: No acute intracranial findings on this noninfused CT scan of the brain. No evidence of cervical spine fracture, malalignment, nor acute compromise of the cervical spinal canal. Multilevel degenerative facet arthropathy. Also some calcification noted the supraspinous ligament at C 4-5 level. [facility] Medical History Caregiver burden hospice respite admission January 2021 CKD (chronic kidney disease) stage 5, GFR less than 15 ml/min Confusion Degenerative arthritis of right knee (03/25/15) Most recent Synvisc injection: 11/10/19 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 Encouraged Triamcinolone Cream 1-2 times per day. Hydrate in between with Cetaphil cream or something similar. Vascular dementia progressing, moderate to advanced Weakness generalized (04/02/18) Weight loss observed on examination 03/31/20 - Down 10lbs past 3 months Surgical History Total replacement of hip (~1993) LEFT Trigger Finger release (11/09/15) 05/15/14; [facility]; LEFT MIDDLE FINGER; LEFT PIP JOINT 11/09/15; Dr. Garcia; left ring finger trigger elease & left carpal tunnel release Family History Mother Neoplasm LIVER Father No problems noted. Sister No problems noted. Brother Diabetes Grandfather No problems noted. Grandfather No problems noted. Grandmother No problems noted. Grandmother No problems noted. Son Diabetes Daughter Diabetes Daughter No problems noted. Daughter Diabetes Social History Smoking/Tobacco Use Status: Never Smoking risk assessment performed?: Yes Alcohol Intake: never Drug use: Never Substance use type: does not use Caregiver/Support person: Yes Household members: family Housing: house Number of Children: 3 number of grandchildren: 6 Communication Needs: Hard of Hearing and Corrective Lenses Education Level: high school Do you need help understanding health information?: Always Pets and animals: Yes Pets and animals: cat(s) and dog(s) Current gender identity: female What is your relationship status?: How often do you talk on the phone with friends or family?: three or more times per week How often do you get together with friends or relatives?: three or more times per week Panel score (0-1 are the most socially isolated patients): 1 What type of physical activity do you participate in: none and sedentary lifestyle Special marleny needs: No Do you feel safe at home: Yes Do you feel safe in your relationship?: Yes Additional Social history: Lives [facility] with her grandson, Ron, who is with her at nights and on weekends. He works during the day, leaving at 5:30 am. They have hospice aides and family members there caring for her most of the other hours. Family appears to cooperate together well to care for her. She has a dog Jingles and a cat she loves; also loves to feed the birds and watch them outside her window. Very calm. Not demanding.
[2021-02-08] MEDS: Acetaminophen 500 MG TAB PO (14:11)
[2021-02-08] MEDS: QUEtiapine 25 MG TAB PO (14:23)
--- NOTE | 2021-02-08 14:50 | DI.RAD_ITS ---
EXAM: XR FEMUR RT CLINICAL HISTORY: right thigh pain s/p fall TECHNIQUE: COMPARISON: No exams were available for comparison FINDINGS: Multiple views of the femur were obtained and are of limited technical quality. The distal aspect of the femur is not included on the AP views. There are severe degenerative changes of the hip and the joints of the knee. There is no evidence of acute fracture or dislocation on the films obtained. IMPRESSION: RADIATION DOSE DELIVERED: Total DLP
--- NOTE | 2021-02-08 17:38 | PDOC.CMPRO ---
- If Service Date Differs Date of service: 02/08/21 Time of Service: 17:38 Care Management Progress Note S/O: Hallie was sleeping when CM met with her. Hallie is here for Hospice respite, and today is her last day. Later, her daughter arrived, and had questions regarding her follow up care and transition home with hospice. CM discussed her care needs, and stated that [facility] will assist in admission to a facility if she does not feel that she can care for her mother at home any longer. Hospice called Sue while CM was discussing this, and reassured her that they would be actively working on a good plan for Hallie and her family. CM ordered ambulance transport, as Hallie has been bed bound during this admission. A: Hallie is an 85 year old female admitted to [facility] on 02/04/21 for hospice respite. P: Hallie will remain at [facility] for five respite nights, and will return home today, 02/08/21. She will transport via ambulance, if indicated. She will be followed by Hospice in the community. CM will continue to support Hallie, her family, and the hospice team with discharge plan considerations.
== END 2021-02-08 17:22 | disposition home or self-care (01) | DRG 948 ==
LOC: ER 14:35 → MS 15:51
PROVIDERS: Admitting Provider Family Medicine; Emergency Provider Physician Assistant; Visit Provider Family Medicine
DX: R53.1 Weakness (principal); N18.5 Chronic kidney disease, stage 5; I12.0 Hypertensive chronic kidney disease with stage 5 chronic kidney disease or end stage renal disease; N17.9 Acute kidney failure, unspecified; Z75.5 Holiday relief care; Z51.5 Encounter for palliative care; L03.031 Cellulitis of right toe; F01.50 Vascular dementia, unspecified severity, without behavioral disturbance, psychotic disturbance, mood disturbance, and anxiety; M15.9 Polyosteoarthritis, unspecified; E11.22 Type 2 diabetes mellitus with diabetic chronic kidney disease; E11.319 Type 2 diabetes mellitus with unspecified diabetic retinopathy without macular edema; H40.9 Unspecified glaucoma; E78.5 Hyperlipidemia, unspecified; E03.9 Hypothyroidism, unspecified; D50.9 Iron deficiency anemia, unspecified; I73.9 Peripheral vascular disease, unspecified; W19.XXXA Unspecified fall, initial encounter; Z96.642 Presence of left artificial hip joint; Y92.008 Other place in unspecified non-institutional (private) residence as the place of occurrence of the external cause
CPT/HCPCS: 10060; 36415; 51702; 71250; 73552; 80053; 82550; 87077; 87635; 93005; 96361; 96365; 99223; 99232; 99239; 99285; 70450; 72125; 74176; 81003; 81015; 84484; 85025; 87086; 87186; 93010; J0696; J3490